=== PATIENT | female | born 1935 | race Caucasian/White ===

== ENCOUNTER 2016-10-31 10:29 | Inpatient (IN) | payer BC ==
--- NOTE | 2016-10-31 10:47 | PDOC ---
History of Present Illness - General History Source: Patient, Old Records Exam Limitations: No Limitations <Ruth Persaud - Last Filed: 10/31/16 13:34> - General History Source: Patient, Family, Old Records Exam Limitations: No Limitations - History of Present Illness Initial Comments: 10/31/16 11:34 The patient is a 81 year old female, accompanied by family, with a significant past medical history of DM, hypertension, hyperlipidemia, CAD s/p CABG, CKD, GERD, large LUQ hernia, who presents to the emergency department today with of altered mental status since this morning. As per daughter, the patient woke up at 7:30 this morning very disoriented. As per daughter the patient was having hallucinations and mood swings with associated nausea, dizziness, and weakness. The patient did not report any alleviating or exacerbating symptoms. PCP: Dr. Santos Haynes [phone] PAST MEDICAL HISTORY: DM, hypertension, hyperlipidemia, CAD, CKD, GERD, diverticulitis, anxiety PAST SURGICAL HISTORY: CABG, Hemicolectomy FAMILY HISTORY: No pertinent history reported SOCIAL HISTORY: Denied history of smoking, EtOH use, and/or recreational drug use. ALLERGIES: NKDA MEDICATIONS: Reviewed <Silverio Pindea - Last Filed: 10/31/16 13:42> - General Chief Complaint: Altered Mental Status Stated Complaint: ALTERED MENTAL STATE Time Seen by Provider: 10/31/16 10:47 Past History - Past Medical History Anemia: No Asthma: No Cancer: No Cardiac Disorders: Yes (CAD) CVA: No COPD: No CHF: No Dementia: No Diabetes: Yes GI Disorders: Yes (GERD-DIVERTICULITIS) Disorders: No HTN: Yes Hypercholesterolemia: Yes Liver Disease: No Psychiatric Problems: Yes (ANXEITY) Seizures: No Thyroid Disease: No Other medical history: ABD HERNIA - Surgical History Abdominal Surgery: Yes (EXPLORATORY LAP - HEMICOLECTOMY-) Appendectomy: No Cardiac Surgery: Yes (CABG) Cholecystectomy: No Lung Surgery: No Neurologic Surgery: No Orthopedic Surgery: No - Immunization History Immunization Up to Date: Yes - Psycho/Social/Smoking Cessation Hx Anxiety: No Suicidal Ideation: No Smoking History: Never smoked Have you smoked in the past 12 months: No Information on smoking cessation initiated: No Hx Alcohol Use: No Drug/Substance Use Hx: No Substance Use Type: None <Ruth Persaud - Last Filed: 10/31/16 13:34> <Silverio Pineda - Last Filed: 10/31/16 13:42> - Past Medical History Allergies/Adverse Reactions: Allergies Allergy/AdvReac Type Severity Reaction Status Date / Time No Known Allergies Allergy Verified 10/31/16 10:35 Home Medications: Ambulatory Orders Alprazolam [Xanax] 0.25 mg PO BID 06/13/13 Nifedipine [Nifedical Xl] 60 mg PO DAILY 06/13/13 Sitagliptin Phosphate [Januvia] 100 mg PO DAILY 06/13/13 Valsartan [Diovan] 320 mg PO DAILY 06/13/13 Metformin HCl [Glucophage -] 500 mg PO BID@0700,1630 #60 tablet 11/09/15 Metoprolol Succinate [Toprol XL -] 100 mg PO HS #30 tab.sr.24h 11/09/15 Atorvastatin Ca [Lipitor] 10 mg PO HS 10/31/16 Escitalopram Oxalate [Lexapro -] 5 mg PO DAILY 10/31/16 Glimepiride [Amaryl] 1 mg PO DAILY 10/31/16 Meclizine HCl 25 mg PO PRN 10/31/16 Review of Systems - Review of Systems Able to Perform ROS?: Yes Comments:: 10/31/16 11:34 CONSTITUTIONAL: Present: Weakness Absent: fever, chills, diaphoresis, generalized weakness, malaise, loss of appetite HEENT: Absent: rhinorrhea, nasal congestion, throat pain, throat swelling, difficulty swallowing, mouth swelling, ear pain, eye pain, visual Changes CARDIOVASCULAR: Absent: chest pain, syncope, palpitations, irregular heart rate, lightheadedness , peripheral edema RESPIRATORY: Absent: cough, shortness of breath, dyspnea with exertion, orthopnea, wheezing, stridor, hemoptysis GASTROINTESTINAL: Absent: abdominal pain, abdominal distension, vomiting, diarrhea, constipation, melena, hematochezia GENITOURINARY: Absent: dysuria, frequency, urgency, hesitancy, hematuria, flank pain, genital pain MUSCULOSKELETAL: Absent: myalgia, arthralgia, joint swelling SKIN: Absent: rash, itching, pallor HEMATOLOGIC/IMMUNOLOGIC: Absent: easy bleeding, easy bruising, lymphadenopathy, frequent infections ENDOCRINE: Absent: unexplained weight gain, unexplained weight loss, heat intolerance, cold intolerance NEUROLOGIC: Present: Altered mental status, hallucinations, nausea, dizziness Absent: headache, focal weakness or paresthesias, unsteady gait, seizure, bladder or bowel incontinence PSYCHIATRIC: Absent: anxiety, depression, suicidal or homicidal ideation, hallucinations. <Silverio Pineda - Last Filed: 10/31/16 13:42> *Physical Exam - Vital Signs Last Vital Signs Temp Pulse Resp BP Pulse Ox 98.0 F 74 18 114/60 100 10/31/16 10:36 10/31/16 10:36 10/31/16 10:36 10/31/16 10:36 10/31/16 10:36 <Ruth Persaud - Last Filed: 10/31/16 13:34> - Vital Signs Last Vital Signs Temp Pulse Resp BP Pulse Ox 98.0 F 74 18 114/60 100 10/31/16 10:36 10/31/16 10:36 10/31/16 10:36 10/31/16 10:36 10/31/16 10:36 - Physical Exam Comments: 10/31/16 11:34 GENERAL: Well developed, well nourished. Awake and alert. In no acute distress. HEENT: Normocephalic, atraumatic. PERRLA, EOMI. No conjunctival pallor. Sclera are non- icteric. Moist mucous membranes. Oropharynx is clear. NECK: Supple. Full ROM. No JVD. Carotid pulses 2+ and symmetric, without bruits. No thyromegaly. No lymphadenopathy. CARDIOVASCULAR: Regular rate and rhythm. No murmurs, rubs, or gallops. Distal pulses are 2+ and symmetric. PULMONARY: No evidence of respiratory distress. Lungs clear to auscultation bilaterally. No wheezing, rales or rhonchi. ABDOMINAL: (+) Soft. Non-tender. Non-distended. No rebound or guarding. No organomegaly. Normoactive bowel sounds. Large incisional hernia in left upper quadrant. MUSCULOSKELETAL Normal range of motion at all joints. No bony deformities or tenderness. No CVA tenderness. EXTREMITIES: No cyanosis. No clubbing. No edema. No calf tenderness. SKIN: Warm and dry. Normal capillary refill. No rashes. No jaundice. NEUROLOGICAL: Alert, awake, appropriate. Cranial nerves 2-12 intact. No deficits to light touch and temperature in face, upper extremities and lower extremities. No motor deficits in the in face, upper extremities and lower extremities. Normoreflexic in the upper and lower extremities. Normal speech. Toes are downgoing bilaterally. PSYCHIATRIC: Cooperative. Good eye contact. Appropriate mood and affect. <Silverio Pineda - Last Filed: 10/31/16 13:42> Heart Score/ECG Review - ECG Impressions Comment:: 10/31/16 11:10 EXAMT: ECG. IMPRESSION: Normal sinus rhythm. Minimal voltage criteria for LVH, may be normal variant. Borderline ECG. <Silverio Pineda - Last Filed: 10/31/16 13:42> ED Treatment Course - LABORATORY CBC & Chemistry Diagram: 10/31/16 11:31 10/31/16 11:31 <Ruth Persaud - Last Filed: 10/31/16 13:34> - LABORATORY CBC & Chemistry Diagram: 10/31/16 11:31 10/31/16 11:31 - RADIOLOGY Radiograph Interpretation: 10/31/16 12:56 EXAM#: TYPE/EXAM: RESULT: [id number] RAD/CHEST X-RAY PORTABLE* Clinical history: Altered mental status. COMPARISON: November 05, 2015. A lordotic AP seated chest film shows a borderline heart size and post CABG status. There is a linear scar in the right upper lobe as previously. No evidence of acute intrathoracic abnormality is seen. IMPRESSION: Status post CABG. No acute intrathoracic abnormality seen. Reported By: Sammy Motta MD 10/31/16 1249 EXAM#: TYPE/EXAM: RESULT: [id number] CT/HEAD CT WITHOUT CONTRAST Clinical history : Altered mental status. COMPARISON: 11/07/2015. Contiguous transaxial images are obtained from the skull base to the vertex without the intravenous use of iodinated contrast material. Sagittal and coronal reconstructions were performed. There are no areas of diminished or increased attenuation seen. There is no ventricular compression or extracerebral fluid collection seen. There is no evidence of a shift of the midline structures. Generalized involutional and periventricular white matter changes are noted. IMPRESSION: Normal noncontrast CT of the brain except for involutional and periventricular white matter changes. Symptoms persist or worsen, obtain MRI. Reported By: Sammy Motta MD 10/31/16 1212 <Silverio Pineda - Last Filed: 10/31/16 13:42> Medical Decision Making - Medical Decision Making 10/31/16 11:30 81-year-old female with history of hypertension, hyperlipidemia, diabetes who presents the emergency department with family who state that she had altered mental status/confusion this morning. Differential diagnosis includes but is not limited to: Infection (pneumonia versus UTI), electrolyte abnormality, dementia, anemia, toxic/metabolic derangement, delirium, atypical presentation of ACS. Plan: 1. Labs 2. Urine analysis 3. CT head 4. Chest x-ray 5. EKG 6. Observe and reevaluate 10/31/16 13:23 Addendum: Labs were reviewed and are noted in the EMR. The WBC is elevated but there is no apparent source of infection. The sodium is 126. CT head is negative as is the CXR. The plan is to admit for monitoring of sodium. <Ruth Persaud - Last Filed: 10/31/16 13:34> - Medical Decision Making 10/31/16 13:24 Dr. Haynes called at [phone]. Case discussed. Agreed to admit. <Silverio Pineda - Last Filed: 10/31/16 13:42> *DC/Admit/Observation/Transfer - Discharge Dispostion Admit: Yes - Attestations Physician Attestion: 10/31/16 11:31 I, Dr. Ruth Persaud, attest that the scribes documentation that appears above has been prepared under my direction and personally reviewed by me in its entirety. I confirmed that the note above accurately reflects all work, treatment, procedures, and medical decision-making performed by me. <Ruth Persaud - Last Filed: 10/31/16 13:34> - Attestations Scribe Attestion: 10/31/16 11:35 Documentation prepared by Silverio Pineda, acting as spanish medical interpreter for Ruth Persaud MD. <Silverio Pineda - Last Filed: 10/31/16 13:42> Diagnosis at time of Disposition: Altered mental status, Hyponatremia - Discharge Dispostion Condition at time of disposition: Stable - Referrals Referrals: Santos Haynes MD [Primary Care Provider] -
[2016-10-31 11:40] LABS: EOSINOPHIL 0.3 % (0-4.5); MCHC 33.7 g/dl (32.0-36.0); MEAN CELL VOLUME 92.1 fl (80-96); MEAN PLT VOLUME 7.7 fl (7.5-11.1); NEUTROPHILS 77.4 % (42.8-82.8); PLATELET COUNT 244 K/MM3 (134-434); RDW 14.1 % (11.6-15.6); WHITE BLOOD COUNT 13.2 K/mm3 (4.0-10.0)
[2016-10-31 12:03] LABS: TROPONIN I < 0.02 ng/ml (0.00-0.05)
[2016-10-31 12:24] LABS: URINE APPEARANCE CLEAR; URINE BILIRUBIN NEGATIVE (NEGATIVE); URINE BLOOD NEGATIVE (NEGATIVE); URINE COLOR STRAW; URINE GLUCOSE (UA) 3+ (NEGATIVE); URINE KETONE NEGATIVE (NEGATIVE); URINE LEUK ESTERASE NEGATIVE (NEGATIVE); URINE NITRITE NEGATIVE (NEGATIVE); URINE UROBILINOGEN NEGATIVE E.U./dl (0.2-1.0)
[2016-10-31 12:29] LABS: URINE PROTEIN 2+ (NEGATIVE)
[2016-10-31 12:29] LABS: ALBUMIN 3.4 g/dl (3.4-5.0); ALK PHOS 92 U/L (45-117); ANION GAP 10 (8-16); BILIRUBIN,TOTAL 0.4 mg/dL (0.2-1.0); CALCIUM 9.1 mg/dL (8.5-10.1); CO2 27 mmol/L (21-32); CREATININE 0.8 mg/dL (0.55-1.02); GLUCOSE,RANDOM 230 mg/dL (74-106); MAGNESIUM 1.5 mg/dL (1.8-2.4); PHOSPHOROUS 2.7 mg/dL (2.5-4.9); SGOT/AST 21 U/L (15-37); SGPT/ALT 27 U/L (12-78); TOT PROT 7.5 g/dl (6.4-8.2)
[2016-10-31 12:30] LABS: URINE RBC 1 /hpf (0-3); URINE WBC 1 /hpf (3-5)
[2016-10-31] MEDS ORDERED: SODIUM CHLORIDE 1,000 ML IV STA (12:39)
--- NOTE | 2016-10-31 13:53 | HP ---
CHIEF COMPLAINT: AMS PCP: Dr. Barcenas HISTORY OF PRESENT ILLNESS: The patient is a 81 year old female, accompanied by family, with a significant past medical history of DM, hypertension, hyperlipidemia, CAD s/p CABG, CKD, GERD, large LUQ hernia, who presents to the emergency department today with of altered mental status since this morning. As per daughter, the patient woke up at 7:30 this morning very disoriented. As per daughter the patient was having hallucinations and mood swings with associated nausea, dizziness, and weakness. The patient did not report any alleviating or exacerbating symptoms. Dr. Persaud, ED, explained that she spoke with Dr. Chaney who had blood work on her a week ago and it was normal range. These ER labs are new. She has also been started on Lexapro one week prior. PCP: Dr. Santos Hyanes [phone] PAST MEDICAL HISTORY: DM, hypertension, hyperlipidemia, CAD, CKD, GERD, diverticulitis, anxiety PAST SURGICAL HISTORY: CABG, Hemicolectomy FAMILY HISTORY: No pertinent history reported SOCIAL HISTORY: Denied history of smoking, EtOH use, and/or recreational drug use. ALLERGIES: NKDA MEDICATIONS: Reviewed Family History: Allergies No Known Allergies Allergy (Verified 10/31/16 10:35) HOME MEDICATIONS: Home Medications Medication Instructions Recorded Alprazolam [Xanax] 0.25 mg PO BID 06/13/13 Nifedipine [Nifedical Xl] 60 mg PO DAILY 06/13/13 Sitagliptin Phosphate [Januvia] 100 mg PO DAILY 06/13/13 Valsartan [Diovan] 320 mg PO DAILY 06/13/13 Metformin HCl [Glucophage -] 500 mg PO BID@0700,1630 #60 tablet 11/09/15 Metoprolol Succinate [Toprol XL -] 100 mg PO HS #30 tab.sr.24h 11/09/15 Atorvastatin Ca [Lipitor] 10 mg PO HS 10/31/16 Escitalopram Oxalate [Lexapro -] 5 mg PO DAILY 10/31/16 Glimepiride [Amaryl] 1 mg PO DAILY 10/31/16 Meclizine HCl 25 mg PO PRN 10/31/16 REVIEW OF SYSTEMS CONSTITUTIONAL: Absent: fever, chills, diaphoresis, generalized weakness, malaise, loss of appetite, weight change HEENT: Absent: rhinorrhea, nasal congestion, throat pain, throat swelling, difficulty swallowing, mouth swelling, ear pain, eye pain, visual changes CARDIOVASCULAR: Absent: chest pain, syncope, palpitations, irregular heart rate, lightheadedness , peripheral edema RESPIRATORY: Absent: cough, shortness of breath, dyspnea with exertion, orthopnea, wheezing, stridor, hemoptysis GASTROINTESTINAL: Absent: abdominal pain, abdominal distension, nausea, vomiting, diarrhea, constipation, melena, hematochezia GENITOURINARY: Absent: dysuria, frequency, urgency, hesitancy, hematuria, flank pain, genital pain MUSCULOSKELETAL: Absent: myalgia, arthralgia, joint swelling, back pain, neck pain SKIN: Absent: rash, itching, pallor HEMATOLOGIC/IMMUNOLOGIC: Absent: easy bleeding, easy bruising, lymphadenopathy, frequent infections ENDOCRINE: Absent: unexplained weight gain, unexplained weight loss, heat intolerance, cold intolerance NEUROLOGIC: Absent: headache, focal weakness or paresthesias, dizziness, unsteady gait, seizure, (+)mental status changes, bladder or bowel incontinence PSYCHIATRIC: Absent: anxiety, depression, suicidal or homicidal ideation, hallucinations. PHYSICAL EXAMINATION Vital Signs - 24 hr 10/31/16 10:36 Temperature 98.0 F Pulse Rate 74 Respiratory 18 Rate Blood Pressure 114/60 O2 Sat by Pulse 100 Oximetry (%) GENERAL: Awake, alert, and fully oriented, in no acute distress. HEAD: Normal with no signs of trauma. EYES: Pupils equal, round and reactive to light, extraocular movements intact, sclera anicteric, conjunctiva clear. No lid lag. EARS, NOSE, THROAT: Ears normal, nares patent, oropharynx clear without exudates. Moist mucous membranes. NECK: Normal range of motion, supple without lymphadenopathy, JVD, or masses. LUNGS: Breath sounds equal, clear to auscultation bilaterally. No wheezes, and no crackles. No accessory muscle use. HEART: Regular rate and rhythm, normal S1 and S2 without murmur, rub or gallop. ABDOMEN: Soft, nontender, not distended, normoactive bowel sounds, no guarding, no rebound, no masses. No hepatomegaly or splenomegaly. MUSCULOSKELETAL: Normal range of motion at all joints. No bony deformities or tenderness. No CVA tenderness. UPPER EXTREMITIES: 2+ pulses, warm, well-perfused. No cyanosis. No clubbing. No peripheral edema. LOWER EXTREMITIES: 2+ pulses, warm, well-perfused. No calf tenderness. No peripheral edema. NEUROLOGICAL: Cranial nerves II-XII intact. Normal speech. Normal gait. PSYCHIATRIC: Cooperative. Good eye contact. Appropriate mood and affect. SKIN: Warm, dry, normal turgor, no rashes or lesions noted, normal capillary refill. Laboratory Results - last 24 hr 10/31/16 10/31/16 10/31/16 11:13 11:29 11:31 WBC 13.2 H RBC 4.52 Hgb 14.0 Hct 41.6 MCV 92.1 MCHC 33.7 RDW 14.1 Plt Count 244 MPV 7.7 Neutrophils % 77.4 Lymphocytes % 15.3 D Monocytes % 6.0 Eosinophils % 0.3 Basophils % 1.0 Sodium Potassium Chloride Carbon Dioxide Anion Gap BUN Creatinine Creat Clearance w eGFR POC Glucometer [phone] Random Glucose Calcium Phosphorus Magnesium Total Bilirubin AST ALT Alkaline Phosphatase Creatine Kinase Troponin I Total Protein Albumin Lipase Urine Color Straw Urine Appearance Clear Urine pH 7.0 D Urine Protein 2+ H Urine Glucose (UA) 3+ H Urine Ketones Negative Urine Blood Negative Urine Nitrite Negative Urine Bilirubin Negative Urine Urobilinogen Negative Ur Leukocyte Esterase Negative Urine RBC 1 Urine WBC 1 Ur Epithelial Cells Rare 10/31/16 11:31 WBC RBC Hgb Hct MCV MCHC RDW Plt Count MPV Neutrophils % Lymphocytes % Monocytes % Eosinophils % Basophils % Sodium 126 L Potassium 4.1 Chloride 89 L D Carbon Dioxide 27 Anion Gap 10 BUN 16 Creatinine 0.8 Creat Clearance w eGFR > 60 POC Glucometer Random Glucose 230 H D Calcium 9.1 Phosphorus 2.7 D Magnesium 1.5 L Total Bilirubin 0.4 D AST 21 ALT 27 Alkaline Phosphatase 92 Creatine Kinase 86 Troponin I < 0.02 Total Protein 7.5 Albumin 3.4 Lipase 116 Urine Color Urine Appearance Urine pH Urine Protein Urine Glucose (UA) Urine Ketones Urine Blood Urine Nitrite Urine Bilirubin Urine Urobilinogen Ur Leukocyte Esterase Urine RBC Urine WBC Ur Epithelial Cells ASSESSMENT/PLAN: This 81 yr old female who is now admitted for hyponatremia and encephalopathy possible due to SSRI being admitted inpat m/s 1. hyponatremia -urine osmo/and lytes 2. leukocytosis -trend WBC -monitor fever -follow up culture 3. DM -monitor finger sticks -sliding scale 4. encephalopathy -monitor mental status -repeat head CT as needed. Problem List - Problem (1) Altered mental status Code(s): R41.82 - ALTERED MENTAL STATUS, UNSPECIFIED Qualifiers: Altered mental status type: disorientation Qualified Code(s): R41.0 - Disorientation, unspecified (2) Hyponatremia Code(s): E87.1 - HYPO-OSMOLALITY AND HYPONATREMIA (3) Hypomagnesemia Code(s): E83.42 - HYPOMAGNESEMIA Visit type - Emergency Visit Emergency Visit: Yes Care time: The patient presented to the Emergency Department on the above date and was hospitalized for further evaluation of their emergent condition. - New Patient This patient is new to me today: Yes Date on this admission: 10/31/16 - Critical Care Critical Care patient: No
[2016-10-31] MEDS ORDERED: MAGNESIUM SULF 50% (8.12 MEQ/2 ML-1 GM VIAL) IVPB ONE (14:11)
[2016-10-31] MEDS ORDERED: MAGNESIUM SULF 50% (8.12 MEQ/2 ML-1 GM VIAL) ONE (14:15)
--- NOTE | 2016-10-31 14:38 | EKG ---
Test Reason : Blood Pressure : / mmHG Vent. Rate : 066 BPM Atrial Rate : 066 BPM P-R Int : 164 ms QRS Dur : 088 ms QT Int : 398 ms P-R-T Axes : 042 -16 034 degrees QTc Int : 417 ms NORMAL SINUS RHYTHM MINIMAL VOLTAGE CRITERIA FOR LVH, MAY BE NORMAL VARIANT BORDERLINE ECG WHEN COMPARED WITH ECG OF 05-NOV-2015 17:43, VENT. RATE HAS DECREASED BY 37 BPM Confirmed by LORRIE SANON, MARY ([id number]) on 10/31/2016 2:38:15 PM Referred By: Confirmed By:MARY ANDREW MD
--- NOTE | 2016-10-31 16:03 | CON.CARD ---
Consult Consult Specialty:: cardio Referred by:: maryanne Reason for Consultation:: cad - History of Present Illness Chief Complaint: altered MS History of Present Illness: 81 yo female came to ER with MS changes. very disoriented since awoke this am, per family. as per daughter the patient was having hallucinations and mood swings with associated nausea, dizziness, and weakness. dtr at bedside in ER, states she is already improving pt and dtr deny any recent cp, sob, palpitation sx's no syncope PMH: CAD HTN HPL DM - Past Medical History Cardio/Vascular: Yes: CAD, HTN, Hyperlipdemia Gastrointestinal: Yes: Diverticulosis, GERD, GI Bleed Hepatobiliary: Yes: Other (fatty liver disease) Renal/: Yes: Hematuria (benign essential) Psych: Yes: Anxiety Musculoskeletal: Yes: Chronic low back pain (/spinal stenosis), Osteoarthritis Endocrine: Yes: Diabetes Mellitus - Past Surgical History Past Surgical History: Yes: CABG, Cataract Removal (bilateral), Colectomy ( hemicolectomy for GI bleed) - Alcohol/Substance Use Hx Alcohol Use: No History of Substance Use: reports: None - Smoking History Smoking history: Never smoked Have you smoked in the past 12 months: No - Social History ADL: Independent Occupation: retired dressmaker History of Recent Travel: No Home Medications - Allergies Allergies/Adverse Reactions: Allergies Allergy/AdvReac Type Severity Reaction Status Date / Time No Known Allergies Allergy Verified 10/31/16 10:35 - Home Medications Home Medications: Ambulatory Orders Alprazolam [Xanax] 0.25 mg PO BID 06/13/13 Nifedipine [Nifedical Xl] 60 mg PO DAILY 06/13/13 Sitagliptin Phosphate [Januvia] 100 mg PO DAILY 06/13/13 Valsartan [Diovan] 320 mg PO DAILY 06/13/13 Metformin HCl [Glucophage -] 500 mg PO BID@0700,1630 #60 tablet 11/09/15 Metoprolol Succinate [Toprol XL -] 100 mg PO HS #30 tab.sr.24h 11/09/15 Atorvastatin Ca [Lipitor] 10 mg PO HS 10/31/16 Escitalopram Oxalate [Lexapro -] 5 mg PO DAILY 10/31/16 Glimepiride [Amaryl] 1 mg PO DAILY 10/31/16 Meclizine HCl 25 mg PO PRN 10/31/16 Family Disease History - Family Disease History Family Disease History: Other: Father (old age), Mother (cirrhosis), Brother ( gastric cancer) Review of Systems - Review of Systems Constitutional: reports: Lethargy. denies: Chills, Fever Eyes: denies: Eye Pain HENT: denies: Nasal Congestion Neck: denies: Stiffness Cardiovascular: denies: Palpitations Respiratory: denies: Orthopnea, PND Gastrointestinal: denies: Diarrhea, Rectal Bleeding Genitourinary: denies: Burning, Hematuria Musculoskeletal: denies: Muscle Pain Integumentary: denies: Rash Neurological: reports: Confusion. denies: Numbness, Seizure, Syncope Endocrine: denies: Excessive Sweating Hematology/Lymphatic: denies: Excessive Bleeding Vital Signs: Vital Signs Temperature 98.0 F 10/31/16 10:36 Pulse Rate 74 10/31/16 10:36 Respiratory Rate 18 10/31/16 10:36 Blood Pressure 114/60 10/31/16 10:36 O2 Sat by Pulse Oximetry (%) 100 10/31/16 10:36 Constitutional: Yes: No Distress, Obese Eyes: No: Sclera Icterus HENT: No: Nasal Congestion Neck: No: Decreased ROM Respiratory: Yes: CTA Bilaterally. No: Accessory Muscle Use, Rales, Wheezes Gastrointestinal: Yes: Normal Bowel Sounds. No: Distention, Hepatomegaly, Palpable Mass, Tenderness Cardiovascular: Yes: Regular Rate and Rhythm JVD: No Carotid Bruit: No PMI: Non-Displaced Heart Sounds: Yes: S1, S2. No: Gallop Murmur: No: Systolic Murmur, Diastolic Murmur Musculoskeletal: Yes: Other (No kyphosis) Extremities: No: Cold, Cyanosis Edema: No Peripheral Pulses: 2+ Left Carotid, 2+ Right Carotid, 2+ Left Doralis Pedis, 2+ Right Dorsalis Pedis Integumentary: No: Jaundice Neurological: Yes: Alert, Oriented (x3). No: Seizure Psychiatric: No: Agitated - Other Data Labs, Other Data: Laboratory Tests 10/31/16 10/31/16 11:31 11:31 WBC 13.2 H Hgb 14.0 Plt Count 244 Sodium 126 L Potassium 4.1 Carbon Dioxide 27 BUN 16 Creatinine 0.8 AST 21 ALT 27 Creatine Kinase 86 Troponin I < 0.02 Imaging - Results Chest X-ray: Report Reviewed (clear lungs/pleura) Cat Scan: Report Reviewed (brain: no acute pathology) Assessment/Plan Dobut Stress Echo 2014: 90% MPHR. no STs. no ischemia (normal augmentation all territories) MIBI 06/27: (betty); no ST; variable breast; small/hyper EF; no TID MIBI 12/23 (aleksandar): no STs, ? small apical isch--felt more likely variable breast ; small LV, hyper EF; no TID Echo 11/25: nl LV/EF; nl RV; valves WNL; RVSP 30-40 ECG: NSR, no ischemic findings Hyponatremia: -Na 126 (was 136 in office 10/23/16) -? med effect/SIADH (SSRI started recently per ER report) -no diuretics listed on office EHR med list -per pmd confusion, altered MS: -suspect due to acute drop in SNa -w/u per dr goodman -CT head no stroke -no role for telemetry monitoring at present Coronary artery disease -PRIOR CABG ' W/ANGINAL SX'S SEVERE VIVAR. -NO ISCHEMIA SUSPECTED 2013 THOUGH TECHNICAL LIMITATIONS RELATED TO SMALL LV CAVITY WITH RELATIVELY LARGE BREAST SIZE--VARIABLE BREAST ATTENUATION SUSPECTED > LAD ISCHEMIA AT THAT TIME -NO ISCHEMIA IN THIS (OR OTHER) TERRITORY ON STRESS ECHO 2014 (ATYPICAL SX'S THEN FELT MORE LIKELY GERD/ESOPHAGEAL SPASM--REC'D PPI TRIAL) -NO ANGINAL SX'S SUSPECTED PRESENTLY, NO EKG CHANGES, CARDIAC ENZYMES WNL -HOME MED REGIMEN: ASA, BB, STATIN, ARB--CONT SAME Hypertension -WELL CONTROLLED; -CONT HOME MEDS Diabetes mellitus -PER PMD
--- NOTE | 2016-10-31 18:29 | CONSULT ---
Consult Consult Specialty:: Nephrology Reason for Consultation:: hyponatremia - History of Present Illness Chief Complaint: altered mental status History of Present Illness: Pt is an 81 year old female with pmhx of CAD, CKD, GERD, CABG, DM, HTN and JACK in the past who presents to the ER with altered mental status. She is accompanied by her daughter who helped with the history. She was found to be hyponatremic and I was called to evaluate her. PT was having mood swing and hallucinations at home. She was started on Lexapro about a week ago. She has been on it for about 5 days now. She denies dysuria or hematuria. She denies excess water intake. - History Source History Provided By: Patient, Family Member - Past Medical History Cardio/Vascular: Yes: CAD, HTN, Hyperlipdemia Gastrointestinal: Yes: Diverticulosis, GERD, GI Bleed Hepatobiliary: Yes: Other (fatty liver disease) Renal/: Yes: Hematuria (benign essential), Other (JACK) Psych: Yes: Anxiety Musculoskeletal: Yes: Chronic low back pain (/spinal stenosis), Osteoarthritis Endocrine: Yes: Diabetes Mellitus - Past Surgical History Past Surgical History: Yes: CABG, Cataract Removal (bilateral), Colectomy ( hemicolectomy for GI bleed) - Alcohol/Substance Use Hx Alcohol Use: No History of Substance Use: reports: None - Smoking History Smoking history: Never smoked Have you smoked in the past 12 months: No - Social History ADL: Independent Occupation: retired dressmaker History of Recent Travel: No Home Medications - Allergies Allergies/Adverse Reactions: Allergies Allergy/AdvReac Type Severity Reaction Status Date / Time No Known Allergies Allergy Verified 10/31/16 10:35 - Home Medications Home Medications: Ambulatory Orders Alprazolam [Xanax] 0.25 mg PO BID 06/13/13 Nifedipine [Nifedical Xl] 60 mg PO DAILY 06/13/13 Sitagliptin Phosphate [Januvia] 100 mg PO DAILY 06/13/13 Valsartan [Diovan] 320 mg PO DAILY 06/13/13 Metformin HCl [Glucophage -] 500 mg PO BID@0700,1630 #60 tablet 11/09/15 Metoprolol Succinate [Toprol XL -] 100 mg PO HS #30 tab.sr.24h 11/09/15 Atorvastatin Ca [Lipitor] 10 mg PO HS 10/31/16 Escitalopram Oxalate [Lexapro -] 5 mg PO DAILY 10/31/16 Glimepiride [Amaryl] 1 mg PO DAILY 10/31/16 Meclizine HCl 25 mg PO PRN 10/31/16 Family Disease History - Family Disease History Family Disease History: Other: Father (old age), Mother (cirrhosis), Brother ( gastric cancer) Review of Systems - Review of Systems Constitutional: reports: Malaise Eyes: reports: No Symptoms HENT: reports: No Symptoms Neck: reports: No Symptoms Cardiovascular: reports: No Symptoms Respiratory: reports: No Symptoms Gastrointestinal: reports: No Symptoms Genitourinary: reports: No Symptoms Musculoskeletal: reports: No Symptoms Integumentary: reports: No Symptoms Neurological: reports: Confusion Endocrine: reports: No Symptoms Psychiatric: reports: Hallucinations Physical Exam Vital Signs: Vital Signs Temperature 98.2 F 10/31/16 17:10 Pulse Rate 69 10/31/16 17:10 Respiratory Rate 20 10/31/16 17:10 Blood Pressure 148/69 10/31/16 17:10 O2 Sat by Pulse Oximetry (%) 95 10/31/16 17:47 Constitutional: Yes: Calm Eyes: Yes: Conjunctiva Clear HENT: Yes: Atraumatic Neck: Yes: Supple Cardiovascular: Yes: S1, S2 Respiratory: Yes: CTA Bilaterally Gastrointestinal: Yes: Soft Renal/: Yes: WNL Musculoskeletal: Yes: WNL Edema: No Neurological: Yes: Oriented Psychiatric: Yes: Oriented Labs: Laboratory Tests 11/25/14 11/26/14 11/05/15 22:25 06:00 18:50 WBC Hgb Plt Count Sodium 139 141 137 Potassium Chloride Carbon Dioxide Anion Gap BUN Creatinine Creat Clearance w eGFR Random Glucose Magnesium 10/31/16 10/31/16 11:31 11:31 WBC 13.2 H Hgb 14.0 Plt Count 244 Sodium 126 L Potassium 4.1 Chloride 89 L D Carbon Dioxide 27 Anion Gap 10 BUN 16 Creatinine 0.8 Creat Clearance w eGFR > 60 Random Glucose 230 H D Magnesium 1.5 L Imaging - Results Chest X-ray: Report Reviewed Assessment/Plan Impression 1. hyponatremia 2. CAD s/p CABG 3. DM 4. HTN 5. hyperlipidemia 6. anxiety 7. GERD 8. hypomagnesemia Plan - recommend stopping lexapro, can choose alternative agent - restrict free water to 1 liter - check plasma and urine osm - check urine lytes - check tsh and cortisol level - discussed plan with pt and her daughter - admit to hospital for further treatment and workup - replace mag and repeat labs in am
[2016-10-31] MEDS ORDERED: SODIUM CHLORIDE 1 GM TABLET PO ONE (18:31)
[2016-10-31 20:09] VITALS: BMI 28.3
[2016-10-31] MEDS ORDERED: VALSARTAN 160 MG TABLET (UD) PO STA (22:07)
--- NOTE | 2016-10-31 22:46 | PN ---
Progress Note (short form) - Note Progress Note: PATIENT ADMITTED FROM ER BY ASSEMBLER FOR PULLER OVER HAND / SEEN BY MYSELF THIS PM . PRESENTED WITH CONFUSION AT HOME / DISORIENTED . FOUND TO BE HYPONA ++ . TREATED IN ER WITH IV SALINE . PATIENT NOW AWAKE ALERT ORIENTED X 3 . PATIENT HAS NOT TAKEN ANY OF HER MEDS TODAY . BP THIS EVENING ELEVATED. NA ++ LEVEL 1 WEEK AGO NORMAL . AT THAT TIME SHE WAS STARTED ON LEXAPRO FOR ANXIETY NOT FULLY CONTROLLED BY PRN XANAX. RENAL FEELS LEXAPRO MAY BE THE INDUCING FACTOR. PRESENTLY SHE IS AMBULATING IN ROOM / ORIENTED X 3 / NO DISTRESS / NO CP / NO SOB / NO PALPITATIONS. Selected Entries 10/31/16 20:07 Temperature 98.1 F Pulse Rate 70 Respiratory 20 Rate Blood Pressure 154/108 Weight 145 lb Laboratory Tests 10/31/16 10/31/16 10/31/16 11:31 11:31 22:16 WBC 13.2 H RBC 4.52 Hgb 14.0 Hct 41.6 Plt Count 244 Sodium 126 L Potassium 4.1 Chloride 89 L D Carbon Dioxide 27 Anion Gap 10 BUN 16 Creatinine 0.8 Creat Clearance w eGFR > 60 POC Glucometer 174 Magnesium 1.5 L P/E < > ALERT / ORIENTED / NO DISTRESS. HEENT <> NECK SUPPLE / CAROTIDS 2 + /NO BRUITS COR <> S 1 S 2 NO M / NO G CHEST <> CLEAR P & A ABD <> OBESE / MULTIPLE SURGICAL SCARS / INCISIONAL HERNIAS / LARGEST LEFT OF MIDLINE. EXT <> NO CALF TENDERNESS / NO EDEMA. IMP <> HYPONA++ POSSIBLY LEXAPRO INDUCED CONFUSION / DISORIENTATION FROM HYPONA ++ ASHD / CAD / S/P CABG TYPE 2 DM MELVA ON XANAX HTN HYPERCHOLESTEROLEMIA MGUS / CHRONIC LEUKOCYTOSIS FOLLOWED BY DR AMEZQUITA. HY OF RUPTURED DIVERTICULITIS/ SEPSIS / HEMICOLECTOMY / ABDOMINAL WALL WOUND INFECTION. PLAN <> NA TABS PER RENAL W/UP WITH CORTISOL / THYROID FUNCTION TESTING PER RENAL REPEAT LABS IN AM. CARDIOLOGY CONSULT / FOLLOWUP. GIVE HER REGULAR DIOVAN DOSE TONIGHT WITH ELEVATED BP . BGM'S WITH COVERAGE. PSYCH CONSULT FOR ANXIETY. NEPHROLOGY FOLLOWUP.
[2016-10-31] MEDS: INSULIN SLIDING SCALE (NOVOLOG) 1 VIAL SQ SCH (22:57)
[2016-10-31] MEDS: ATORVASTATIN CA 10 MG TABLET (FP) PO SCH (22:57)
[2016-10-31] MEDS: ALPRAZolam 0.25 MG TABLET PO SCH (22:57)
[2016-11-01] MEDS: GLIMEPIRIDE 1 MG TABLET (FP) PO SCH (07:00)
[2016-11-01] MEDS: metFORMIN HCL 500 MG TABLET (FP) PO SCH ×2 (07:00→17:27)
[2016-11-01] MEDS: sitaGLIPtin PHOSPHATE 100 MG TABLET (FP) PO SCH (07:00)
[2016-11-01] MEDS: INSULIN SLIDING SCALE (NOVOLOG) 1 VIAL SQ SCH ×3 (07:02→17:27)
[2016-11-01 07:46] LABS: BASOPHIL 0.6 % (0-2.0); EOSINOPHIL 0.9 % (0-4.5); MCH 30.9 pg (25.7-33.7); MCHC 33.3 g/dl (32.0-36.0); MEAN CELL VOLUME 92.7 fl (80-96); MEAN PLT VOLUME 7.8 fl (7.5-11.1); NEUTROPHILS 69.5 % (42.8-82.8); PLATELET COUNT 263 K/MM3 (134-434); RDW 13.9 % (11.6-15.6); WHITE BLOOD COUNT 12.6 K/mm3 (4.0-10.0)
[2016-11-01 08:05] LABS: INR 1.02 (0.82-1.09); PROTHROMBIN TIME (PATIENT) 11.2 SEC (9.98-11.88)
[2016-11-01 08:07] LABS: ACTIVATED PTT 29.9 SECONDS (26.9-34.4)
[2016-11-01 08:20] LABS: ALBUMIN 3.5 g/dl (3.4-5.0); CALCIUM 9.4 mg/dL (8.5-10.1)
[2016-11-01 08:35] LABS: ALK PHOS 95 U/L (45-117); ANION GAP 10 (8-16); BILIRUBIN,TOTAL 0.7 mg/dL (0.2-1.0); CO2 26 mmol/L (21-32); CREATININE 0.7 mg/dL (0.55-1.02); GLUCOSE,RANDOM 198 mg/dL (74-106); MAGNESIUM 2.1 mg/dL (1.8-2.4); SGOT/AST 21 U/L (15-37); SGPT/ALT 28 U/L (12-78); THYROID STIMULATING HORMONE 2.11 uIU/ml (0.358-3.74); TOT PROT 7.7 g/dl (6.4-8.2)
[2016-11-01] MEDS: ASPIRIN COATED 81 MG TABLET.EC PO SCH (09:41)
[2016-11-01] MEDS: METOPROLOL SUCCINATE 100 MG TAB.SR.24H (FP) PO SCH (09:41)
[2016-11-01] MEDS: ALPRAZolam 0.25 MG TABLET PO SCH ×2 (09:41→21:43)
[2016-11-01] MEDS: NIFEdipine E.R 60 MG TABLET (UD) PO SCH (09:41)
[2016-11-01] MEDS ORDERED: VALSARTAN 160 MG TABLET (UD) PO SCH ×2 (10:00→22:00)
--- NOTE | 2016-11-01 10:09 | CON.NEURO ---
Consult - History of Present Illness History of Present Illness: 1 year old female brought to hospital for confusion for one day, no focal neurological symptoms ( aphasia, dysarthria, diplopia, weakness or numbness or seizure or headache ). Patient ct head was normal, and sodium is low and after giving iv fluid and sodium tablet , she has improved. at floor she has been walking around, denies headhace. Recently she was started on lexapro for anxiety. - Past Medical History Cardio/Vascular: Yes: CAD, HTN, Hyperlipdemia Gastrointestinal: Yes: Diverticulosis, GERD, GI Bleed Hepatobiliary: Yes: Other (fatty liver disease) Renal/: Yes: Hematuria (benign essential), Other (JACK) Psych: Yes: Anxiety Musculoskeletal: Yes: Chronic low back pain (/spinal stenosis), Osteoarthritis Endocrine: Yes: Diabetes Mellitus - Past Surgical History Past Surgical History: Yes: CABG, Cataract Removal (bilateral), Colectomy ( hemicolectomy for GI bleed) - Alcohol/Substance Use Hx Alcohol Use: No History of Substance Use: reports: None - Smoking History Smoking history: Never smoked Have you smoked in the past 12 months: No - Social History ADL: Independent Occupation: retired dressmaker History of Recent Travel: No Home Medications - Allergies Allergies/Adverse Reactions: Allergies Allergy/AdvReac Type Severity Reaction Status Date / Time No Known Allergies Allergy Verified 10/31/16 10:35 - Home Medications Home Medications: Ambulatory Orders Alprazolam [Xanax] 0.25 mg PO BID 06/13/13 Nifedipine [Nifedical Xl] 60 mg PO DAILY 06/13/13 Sitagliptin Phosphate [Januvia] 100 mg PO DAILY 06/13/13 Valsartan [Diovan] 320 mg PO DAILY 06/13/13 Metformin HCl [Glucophage -] 500 mg PO BID@0700,1630 #60 tablet 11/09/15 Metoprolol Succinate [Toprol XL -] 100 mg PO HS #30 tab.sr.24h 11/09/15 Atorvastatin Ca [Lipitor] 10 mg PO HS 10/31/16 Escitalopram Oxalate [Lexapro -] 5 mg PO DAILY 10/31/16 Glimepiride [Amaryl] 1 mg PO DAILY 10/31/16 Meclizine HCl 25 mg PO PRN 10/31/16 Family Disease History - Family Disease History Family Disease History: Other: Father (old age), Mother (cirrhosis), Brother ( gastric cancer) Physical Exam-Neuro Vital Signs: Vital Signs Temperature 98.0 F 11/01/16 09:00 Pulse Rate 71 11/01/16 09:00 Respiratory Rate 18 11/01/16 09:00 Blood Pressure 145/68 11/01/16 09:00 O2 Sat by Pulse Oximetry (%) 95 11/01/16 05:00 Labs: CBC, BMP 11/01/16 06:30 11/01/16 06:30 INR, PTT INR 1.02 (0.82-1.09) 11/01/16 06:30 NIH Stroke Scale - Total Score NIH Stroke Scale Score: 0 Imaging - Results Cat Scan: Report Reviewed Assessment/Plan confusion 81 year old female brought to hospital for confusion for one day, no focal neurological symptoms ( aphasia, dysarthria, diplopia, weakness or numbness or seizure or headache ). Patient ct head was normal, and sodium is low and after giving iv fluid and sodium tablet , she has improved. at floor she has been walking around, denies headhace. Recently she was started on lexapro for anxiety. Past Medical HIistory of DM, HTN HLP , CKD , CAD, AND CABG, AND Hemicolectomy No toxic habits. Home Medication Home Medications Medication Instructions Recorded Alprazolam [Xanax] 0.25 mg PO BID 06/13/13 Nifedipine [Nifedical Xl] 60 mg PO DAILY 06/13/13 Sitagliptin Phosphate [Januvia] 100 mg PO DAILY 06/13/13 Valsartan [Diovan] 320 mg PO DAILY 06/13/13 Metformin HCl [Glucophage -] 500 mg PO BID@0700,1630 #60 tablet 11/09/15 Metoprolol Succinate [Toprol XL -] 100 mg PO HS #30 tab.sr.24h 11/09/15 Atorvastatin Ca [Lipitor] 10 mg PO HS 10/31/16 Escitalopram Oxalate [Lexapro -] 5 mg PO DAILY 10/31/16 Glimepiride [Amaryl] 1 mg PO DAILY 10/31/16 Meclizine HCl 25 mg PO PRN 10/31/16 ROS reviewed in chart Neurological Examination alert and oriented x 2, could not tell what date is today,she is walking around no speech disturbances, answering phone and having normal conversation with family moving all extremity , normal strength Reflex are generalized diminished ct head is unremarkable Assessment-- confusion could be due to hyponatremia and also contributed by lexapro , at this time clinically unlikely to be stroke, meningitis or subclinical status Plan-- [facility] can be follow up for further evaluation as outpatient for dementia B12,folate tsh can be send no further recommendation from Neuro point of view Thanking you so much Sheldon Lanier MD
--- NOTE | 2016-11-01 13:35 | PN ---
Progress Note, Physician History of Present Illness: Pt seen and examined at bedside. She is more awake and alert today. - Current Medication List Current Medications: Active Medications Alprazolam (Xanax -) 0.25 mg PO BID [facility] Last Admin: 11/01/16 09:41 Dose: 0.25 mg Aspirin (Ecotrin -) 81 mg PO DAILY [facility] Last Admin: 11/01/16 09:41 Dose: 81 mg Atorvastatin Calcium (Lipitor -) 10 mg PO [facility] Last Admin: 10/31/16 22:57 Dose: 10 mg Glimepiride (Amaryl -) 1 mg PO DAILY@0700 [facility] Last Admin: 11/01/16 07:00 Dose: 1 mg Insulin Aspart (Novolog Vial Sliding Scale -) 1 vial SQ TIDAC [facility] PRN Reason: Protocol Last Admin: 11/01/16 11:49 Dose: Not Given Metformin HCl (Glucophage -) 500 mg PO BID@0700,1630 [facility] Last Admin: 11/01/16 07:00 Dose: 500 mg Metoprolol Succinate (Toprol Xl -) 100 mg PO DAILY [facility] Last Admin: 11/01/16 09:41 Dose: 100 mg Nifedipine (Procardia Xl -) 60 mg PO DAILY [facility] Last Admin: 11/01/16 09:41 Dose: 60 mg Sitagliptin Phosphate (Januvia -) 100 mg PO DAILY@0700 [facility] Last Admin: 11/01/16 07:00 Dose: 100 mg Valsartan (Diovan -) 320 mg PO [facility] - Objective Vital Signs: Vital Signs Temperature 98.0 F 11/01/16 09:00 Pulse Rate 71 11/01/16 09:00 Respiratory Rate 18 11/01/16 09:00 Blood Pressure 145/68 11/01/16 09:00 O2 Sat by Pulse Oximetry (%) 95 11/01/16 05:00 Constitutional: Yes: Calm Eyes: Yes: Conjunctiva Clear HENT: Yes: Atraumatic Neck: Yes: Supple Cardiovascular: Yes: S1, S2 Respiratory: Yes: CTA Bilaterally Gastrointestinal: Yes: Soft, Abdomen, Obese Genitourinary: Yes: WNL Musculoskeletal: Yes: WNL Edema: No Neurological: Yes: Oriented Psychiatric: Yes: Oriented Labs: CBC, BMP 11/01/16 06:30 11/01/16 06:30 INR, PTT INR 1.02 (0.82-1.09) 11/01/16 06:30 Problem List - Problems (1) Altered mental status Code(s): R41.82 - ALTERED MENTAL STATUS, UNSPECIFIED Qualifiers: Altered mental status type: disorientation Qualified Code(s): R41.0 - Disorientation, unspecified (2) Hyponatremia Code(s): E87.1 - HYPO-OSMOLALITY AND HYPONATREMIA Assessment/Plan Current Medications Generic Name Dose Route Start Last Admin Trade Name Freq PRN Reason Stop Dose Admin Alprazolam 0.25 mg 10/31/16 22:00 11/01/16 09:41 Xanax - PO 0.25 mg BID JULIÁN Administration Aspirin 81 mg 11/01/16 10:00 11/01/16 09:41 Ecotrin - PO 81 mg DAILY JULIÁN Administration Atorvastatin Calcium 10 mg 10/31/16 22:00 10/31/16 22:57 Lipitor - PO 10 mg HS JULIÁN Administration Glimepiride 1 mg 11/01/16 07:00 11/01/16 07:00 Amaryl - PO 1 mg DAILY@0700 JULIÁN Administration Insulin Aspart 1 vial 10/31/16 22:15 11/01/16 11:49 Novolog Vial Sliding Scale - SQ Not [facility] Protocol Metformin HCl 500 mg 11/01/16 07:00 11/01/16 07:00 Glucophage - PO 500 mg BID@0700,1630 JULIÁN Administration Metoprolol Succinate 100 mg 11/01/16 10:00 11/01/16 09:41 Toprol Xl - PO 100 mg DAILY JULIÁN Administration Nifedipine 60 mg 11/01/16 10:00 11/01/16 09:41 Procardia Xl - PO 60 mg DAILY JULI[facility]N Administration Sitagliptin Phosphate 100 mg 11/01/16 07:00 11/01/16 07:00 Januvia - PO 100 mg DAILY@0700 JUL[facility]N Administration Valsartan 320 mg 11/01/16 22:00 Diovan - PO HS [facility] Laboratory Tests 10/31/16 10/31/16 10/31/16 14:00 20:00 21:30 Sodium Serum Osmolality Pending TSH Cortisol AM Sample Urine Osmolality Pending Ur Random Sodium 64 11/01/16 11/01/16 06:30 06:30 Sodium 130 L Serum Osmolality TSH 2.11 Cortisol AM Sample Pending Urine Osmolality Ur Random Sodium Impression 1. hyponatremia 2. CAD s/p CABG 3. DM 4. HTN 5. hyperlipidemia 6. anxiety 7. GERD 8. hypomagnesemia Plan - hyponatremia workup is in progress - repeat labs in am - cont free water restriction - will give another salt tab - would recommend restarting lexapro, can see psych for alternate agent - neuro input appreciated
--- NOTE | 2016-11-01 14:43 | CON.PSY ---
Psychiatry Consult Chief Complaint: in get panic attacks anbd anxiety. I also have pins and needles all ove4r my body. Symptoms: reports: Anxiety, Panic Attacks - Previous Psychiatric Treatment Outpatient: None Inpatient: None - Previous Substance Abuse Treatment Outpatient: None Inpatient: None - Current Medications Current Medications: Active Medications Alprazolam (Xanax -) 0.25 mg PO BID [facility] Last Admin: 11/01/16 09:41 Dose: 0.25 mg Aspirin (Ecotrin -) 81 mg PO DAILY [facility] Last Admin: 11/01/16 09:41 Dose: 81 mg Atorvastatin Calcium (Lipitor -) 10 mg PO [facility] Last Admin: 10/31/16 22:57 Dose: 10 mg Glimepiride (Amaryl -) 1 mg PO DAILY@0700 [facility] Last Admin: 11/01/16 07:00 Dose: 1 mg Insulin Aspart (Novolog Vial Sliding Scale -) 1 vial SQ TIDAC [facility] PRN Reason: Protocol Last Admin: 11/01/16 11:49 Dose: Not Given Metformin HCl (Glucophage -) 500 mg PO BID@0700,1630 [facility] Last Admin: 11/01/16 07:00 Dose: 500 mg Metoprolol Succinate (Toprol Xl -) 100 mg PO DAILY [facility] Last Admin: 11/01/16 09:41 Dose: 100 mg Nifedipine (Procardia Xl -) 60 mg PO DAILY [facility] Last Admin: 11/01/16 09:41 Dose: 60 mg Sitagliptin Phosphate (Januvia -) 100 mg PO DAILY@0700 [facility] Last Admin: 11/01/16 07:00 Dose: 100 mg Sodium Chloride (Sodium Chloride Tablet -) 1 gm PO ONCE ONE Stop: 11/01/16 13:36 Valsartan (Diovan -) 320 mg PO [facility] - Allergies Allergies: Allergies Allergy/AdvReac Type Severity Reaction Status Date / Time No Known Allergies Allergy Verified 10/31/16 10:35 - Current Living Status Usual Living Arrangement: With Significant Other - Current Mental Status Evaluation Attitude: Cooperative - Affect Affect: Full Range Appropriateness: Appropriate to Content - Mood Mood: Anxious - Speech/Language Expressive: Coherent - Psychomotor Activity Psychomotor Activity: Hyperactive - Thought Process Thought Process: Intact - Thought Content Hallucinations: Absent Delusions: Absent - Self Perception Self Perception: No Impairment - Cognition Attention: Alert Memory, Immediate Recall: Intact Memory, Short Term: 2/3 Memory, Remote with Promptin/3 - Abstraction Proverb Interpretation: Intact Judgement: Intact - Insight Insight: Intact - Impulse Control Impulse Control: Good Control - Suicidal Ideation Suicidal Ideation: No - Homicidal Ideation Homicidal Ideation: No Assessment/Plan 1) Continue with XAnax. 2) Consider Neurontin for parasthesias
[2016-11-01] MEDS ORDERED: SODIUM CHLORIDE 1 GM TABLET PO ONE (15:00)
--- NOTE | 2016-11-01 16:07 | PN ---
Progress Note, Physician Chief Complaint: Ms Cheung says she is doing well. No cp, sob, n/v. Anxiety improved. - Current Medication List Current Medications: Active Medications Alprazolam (Xanax -) 0.25 mg PO BID [facility] Last Admin: 11/01/16 09:41 Dose: 0.25 mg Aspirin (Ecotrin -) 81 mg PO DAILY [facility] Last Admin: 11/01/16 09:41 Dose: 81 mg Atorvastatin Calcium (Lipitor -) 10 mg PO [facility] Last Admin: 10/31/16 22:57 Dose: 10 mg Glimepiride (Amaryl -) 1 mg PO DAILY@0700 [facility] Last Admin: 11/01/16 07:00 Dose: 1 mg Insulin Aspart (Novolog Vial Sliding Scale -) 1 vial SQ TIDAC [facility] PRN Reason: Protocol Last Admin: 11/01/16 11:49 Dose: Not Given Metformin HCl (Glucophage -) 500 mg PO BID@0700,1630 [facility] Last Admin: 11/01/16 07:00 Dose: 500 mg Metoprolol Succinate (Toprol Xl -) 100 mg PO DAILY [facility] Last Admin: 11/01/16 09:41 Dose: 100 mg Nifedipine (Procardia Xl -) 60 mg PO DAILY [facility] Last Admin: 11/01/16 09:41 Dose: 60 mg Sitagliptin Phosphate (Januvia -) 100 mg PO DAILY@0700 [facility] Last Admin: 11/01/16 07:00 Dose: 100 mg Valsartan (Diovan -) 320 mg PO [facility] - Objective Vital Signs: Vital Signs Temperature 98.1 F 11/01/16 14:02 Pulse Rate 71 11/01/16 14:02 Respiratory Rate 17 11/01/16 14:02 Blood Pressure 112/49 11/01/16 14:02 O2 Sat by Pulse Oximetry (%) 95 11/01/16 05:00 Constitutional: Yes: Well Nourished, No Distress, Calm Cardiovascular: Yes: Regular Rate and Rhythm. No: Gallop, Murmur, Rub Respiratory: Yes: Regular, CTA Bilaterally. No: Rales, Rhonchi, Wheezes Gastrointestinal: Yes: Normal Bowel Sounds, Soft. No: Distention, Tenderness Extremities: Yes: WNL Edema: No Labs: CBC, BMP 11/01/16 06:30 11/01/16 06:30 INR, PTT INR 1.02 (0.82-1.09) 11/01/16 06:30 Problem List - Problems (1) Altered mental status Assessment/Plan: -secondary to hyponatremia -resolved Code(s): R41.82 - ALTERED MENTAL STATUS, UNSPECIFIED Qualifiers: Altered mental status type: disorientation Qualified Code(s): R41.0 - Disorientation, unspecified (2) Hyponatremia Assessment/Plan: -? secondary to lexapro -improving -appreciate nephrology assistance -continue salt supplementation -recheck in am Code(s): E87.1 - HYPO-OSMOLALITY AND HYPONATREMIA (3) Anxiety Assessment/Plan: -appreciate psychiatry assistance -started on xanax Code(s): F41.9 - ANXIETY DISORDER, UNSPECIFIED (4) Hyperlipidemia Assessment/Plan: -continue lipitor Code(s): E78.5 - HYPERLIPIDEMIA, UNSPECIFIED (5) Hypertension Assessment/Plan: -continue nifedipine, toprol xl, and valsartan Code(s): I10 - ESSENTIAL (PRIMARY) HYPERTENSION (6) Uncontrolled type 2 diabetes mellitus Assessment/Plan: -continue metformin, amaryl, and januvia Code(s): E11.65 - TYPE 2 DIABETES MELLITUS WITH HYPERGLYCEMIA Assessment/Plan -possible discharge tomorrow
[2016-11-01] MEDS: ATORVASTATIN CA 10 MG TABLET (FP) PO SCH (21:43)
[2016-11-02] MEDS ORDERED: PT OWN MED DRAWER 7, Y5N ONE (06:28)
[2016-11-02] MEDS: GLIMEPIRIDE 1 MG TABLET (FP) PO SCH (07:05)
[2016-11-02] MEDS: sitaGLIPtin PHOSPHATE 100 MG TABLET (FP) PO SCH (07:05)
[2016-11-02] MEDS: metFORMIN HCL 500 MG TABLET (FP) PO SCH ×2 (07:05→16:35)
[2016-11-02] MEDS: INSULIN SLIDING SCALE (NOVOLOG) 1 VIAL SQ SCH ×3 (07:12→16:34)
[2016-11-02 07:37] VITALS: PULSE 66
[2016-11-02 08:32] LABS: BASOPHIL 0.5 % (0-2.0); EOSINOPHIL 1.3 % (0-4.5); MCH 31.3 pg (25.7-33.7); MCHC 33.9 g/dl (32.0-36.0); MEAN CELL VOLUME 92.3 fl (80-96); NEUTROPHILS 68.9 % (42.8-82.8); PLATELET COUNT 213 K/MM3 (134-434); RDW 14.3 % (11.6-15.6); WHITE BLOOD COUNT 10.2 K/mm3 (4.0-10.0)
[2016-11-02 08:53] LABS: ANION GAP 10 (8-16); CALCIUM 9.2 mg/dL (8.5-10.1); CO2 27 mmol/L (21-32); CREATININE 0.7 mg/dL (0.55-1.02); GLUCOSE,RANDOM 175 mg/dL (74-106)
[2016-11-02] MEDS: ASPIRIN COATED 81 MG TABLET.EC PO SCH (10:50)
[2016-11-02] MEDS: METOPROLOL SUCCINATE 100 MG TAB.SR.24H (FP) PO SCH (10:55)
[2016-11-02] MEDS: NIFEdipine E.R 60 MG TABLET (UD) PO SCH (10:55)
[2016-11-02] MEDS: ALPRAZolam 0.25 MG TABLET PO SCH (10:55)
--- NOTE | 2016-11-02 11:18 | PN ---
Progress Note, Physician Chief Complaint: Ms Cheung says every morning she feels dizzy and jittery and has tingles. She states normally around 11am she begins to feel better. Her roommate states that this am she was complaining of dizziness and some confusion. She is currently at her baseline now. She denies cp, sob, n/v. - Current Medication List Current Medications: Active Medications Alprazolam (Xanax -) 0.25 mg PO BID [facility] Last Admin: 11/02/16 10:55 Dose: 0.25 mg Aspirin (Ecotrin -) 81 mg PO DAILY [facility] Last Admin: 11/02/16 10:50 Dose: 81 mg Atorvastatin Calcium (Lipitor -) 10 mg PO [facility] Last Admin: 11/01/16 21:43 Dose: 10 mg Glimepiride (Amaryl -) 1 mg PO DAILY@0700 [facility] Last Admin: 11/02/16 07:05 Dose: 1 mg Insulin Aspart (Novolog Vial Sliding Scale -) 1 vial SQ TIDAC [facility] PRN Reason: Protocol Last Admin: 11/02/16 07:12 Dose: Not Given Metformin HCl (Glucophage -) 500 mg PO BID@0700,1630 [facility] Last Admin: 11/02/16 07:05 Dose: 500 mg Metoprolol Succinate (Toprol Xl -) 100 mg PO DAILY [facility] Last Admin: 11/02/16 10:55 Dose: 100 mg Nifedipine (Procardia Xl -) 60 mg PO DAILY [facility] Last Admin: 11/02/16 10:55 Dose: 60 mg Sitagliptin Phosphate (Januvia -) 100 mg PO DAILY@0700 [facility] Last Admin: 11/02/16 07:05 Dose: 100 mg Valsartan (Diovan -) 320 mg PO [facility] Last Admin: 11/01/16 21:43 Dose: 320 mg - Objective Vital Signs: Vital Signs Temperature 98.0 F 11/02/16 06:00 Pulse Rate 66 11/02/16 06:00 Respiratory Rate 18 11/02/16 06:00 Blood Pressure 148/59 11/02/16 06:00 O2 Sat by Pulse Oximetry (%) 99 11/02/16 05:00 Constitutional: Yes: Well Nourished, No Distress, Calm Cardiovascular: Yes: Regular Rate and Rhythm. No: Gallop, Murmur, Rub Respiratory: Yes: Regular, CTA Bilaterally. No: Rales, Rhonchi, Wheezes Gastrointestinal: Yes: Normal Bowel Sounds, Soft. No: Distention, Tenderness Extremities: Yes: WNL Edema: No Labs: INR, PTT INR 1.02 (0.82-1.09) 11/01/16 06:30 Problem List - Problems (1) Altered mental status Code(s): R41.82 - ALTERED MENTAL STATUS, UNSPECIFIED Qualifiers: Altered mental status type: disorientation Qualified Code(s): R41.0 - Disorientation, unspecified (2) Hyponatremia Code(s): E87.1 - HYPO-OSMOLALITY AND HYPONATREMIA (3) Anxiety Code(s): F41.9 - ANXIETY DISORDER, UNSPECIFIED (4) Hyperlipidemia Code(s): E78.5 - HYPERLIPIDEMIA, UNSPECIFIED (5) Hypertension Code(s): I10 - ESSENTIAL (PRIMARY) HYPERTENSION (6) Uncontrolled type 2 diabetes mellitus Code(s): E11.65 - TYPE 2 DIABETES MELLITUS WITH HYPERGLYCEMIA Assessment/Plan (1) Altered mental status Assessment/Plan: -occurs in am -? secondary to evening xanax, lower blood pressure, or low evening sugars -glucose levels are stable, lower suspicion -most likely xanax since has aspect of confusion -possibly secondary to valsartan -improved now Code(s): R41.82 - ALTERED MENTAL STATUS, UNSPECIFIED Qualifiers: Altered mental status type: disorientation Qualified Code(s): R41.0 - Disorientation, unspecified (2) Hyponatremia Assessment/Plan: -continues to improve -nephrology to see -holding lexapro Code(s): E87.1 - HYPO-OSMOLALITY AND HYPONATREMIA (3) Anxiety Assessment/Plan: -appreciate psychiatry assistance -started on xanax -may need to go to daily dosing Code(s): F41.9 - ANXIETY DISORDER, UNSPECIFIED (4) Hyperlipidemia Assessment/Plan: -continue lipitor Code(s): E78.5 - HYPERLIPIDEMIA, UNSPECIFIED (5) Hypertension Assessment/Plan: -continue nifedipine, toprol xl, and valsartan -? if would benefit from bid dosing of valsartan Code(s): I10 - ESSENTIAL (PRIMARY) HYPERTENSION (6) Uncontrolled type 2 diabetes mellitus Assessment/Plan: -continue metformin, amaryl, and januvia Code(s): E11.65 - TYPE 2 DIABETES MELLITUS WITH HYPERGLYCEMIA Dispo -plan for discharge this afternoon if remains clear -will d/w Dr Haynes about medication adjustment
--- NOTE | 2016-11-02 12:15 | DS ---
Physical Examination Vital Signs: Vital Signs Temperature 98.0 F 11/02/16 06:00 Pulse Rate 66 11/02/16 06:00 Respiratory Rate 18 11/02/16 06:00 Blood Pressure 148/59 11/02/16 06:00 O2 Sat by Pulse Oximetry (%) 99 11/02/16 05:00 Discharge Summary Reason For Visit: HYPONATREMIA,ALTERED MENTAL STATUS Current Active Problems Altered mental status (Acute) Hypoglycemia (Acute) Hyponatremia (Acute) Near syncope (Acute) Proteinuria (Acute) Hospital Course: Please refer to progress note written today but in short Ms Cheung is a pleasant 81 year old female who came in with AMS secondary to hyponatremia but also has underlying anxiety. She was seen by nephrology and her lexapro was discontinued as this can cause hyponatremia. Her sodium improved. She was seen by psychiatry and continued on xanax. However she complains of confusion when she wakes up in the morning. Her evening dose of xanax will be held as an outpatient and she has an appointment with Dr Haynes tomorrow to evaluate. Otherwise she is doing well and safe for discharge home. Case was discussed with Dr Haynes prior to discharge to coordinate medication regimen at home. 31 minutes spent in preparation of this discharge Condition: Stable - Instructions Diet, Activity, Other Instructions: resume previous diet and activity. Keep follow up appointment with Dr Haynes tomorrow. Referrals: Santos Haynes MD [Primary Care Provider] - Disposition: HOME - Home Medications Comprehensive Discharge Medication List: Ambulatory Orders Nifedipine [Nifedical Xl] 60 mg PO DAILY 06/13/13 Sitagliptin Phosphate [Januvia] 100 mg PO DAILY 06/13/13 Valsartan [Diovan] 320 mg PO DAILY 06/13/13 Metformin HCl [Glucophage -] 500 mg PO BID@0700,1630 #60 tablet 11/09/15 Metoprolol Succinate [Toprol XL -] 100 mg PO HS #30 tab.sr.24h 11/09/15 Atorvastatin Ca [Lipitor] 10 mg PO HS 10/31/16 Glimepiride [Amaryl] 1 mg PO DAILY 10/31/16 Meclizine HCl 25 mg PO PRN 10/31/16 Alprazolam [Xanax] 0.25 mg PO DAILY #30 tablet MDD 0.25 11/02/16 Aspirin Coated [Ecotrin -] 81 mg PO DAILY tab.ec 11/02/16
[2016-11-02 15:42] VITALS: BP 106/45; TEMP 97.6
[2016-11-02] MEDS ORDERED: SODIUM CHLORIDE 1 GM TABLET PO ONE (16:17)
--- NOTE | 2016-11-02 16:17 | PN ---
Progress Note, Physician History of Present Illness: Pt seen and examined at bedside. She is awake and appears comfortable. - Current Medication List Current Medications: Active Medications Alprazolam (Xanax -) 0.25 mg PO BID [facility] Last Admin: 11/02/16 10:55 Dose: 0.25 mg Aspirin (Ecotrin -) 81 mg PO DAILY [facility] Last Admin: 11/02/16 10:50 Dose: 81 mg Atorvastatin Calcium (Lipitor -) 10 mg PO [facility] Last Admin: 11/01/16 21:43 Dose: 10 mg Glimepiride (Amaryl -) 1 mg PO DAILY@0700 [facility] Last Admin: 11/02/16 07:05 Dose: 1 mg Insulin Aspart (Novolog Vial Sliding Scale -) 1 vial SQ TIDAC [facility] PRN Reason: Protocol Last Admin: 11/02/16 12:15 Dose: Not Given Metformin HCl (Glucophage -) 500 mg PO BID@0700,1630 [facility] Last Admin: 11/02/16 07:05 Dose: 500 mg Metoprolol Succinate (Toprol Xl -) 100 mg PO DAILY [facility] Last Admin: 11/02/16 10:55 Dose: 100 mg Nifedipine (Procardia Xl -) 60 mg PO DAILY [facility] Last Admin: 11/02/16 10:55 Dose: 60 mg Sitagliptin Phosphate (Januvia -) 100 mg PO DAILY@0700 [facility] Last Admin: 11/02/16 07:05 Dose: 100 mg Valsartan (Diovan -) 320 mg PO [facility] Last Admin: 11/01/16 21:43 Dose: 320 mg - Objective Vital Signs: Vital Signs Temperature 97.6 F 11/02/16 15:39 Pulse Rate 66 11/02/16 15:39 Respiratory Rate 18 11/02/16 15:39 Blood Pressure 106/45 11/02/16 15:39 O2 Sat by Pulse Oximetry (%) 99 11/02/16 05:00 Constitutional: Yes: Calm Eyes: Yes: Conjunctiva Clear HENT: Yes: Atraumatic Neck: Yes: Supple Cardiovascular: Yes: S1, S2 Respiratory: Yes: CTA Bilaterally Gastrointestinal: Yes: Normal Bowel Sounds, Soft Genitourinary: Yes: WNL Musculoskeletal: Yes: WNL Edema: No Neurological: Yes: Oriented Psychiatric: Yes: Oriented Labs: INR, PTT INR 1.02 (0.82-1.09) 11/01/16 06:30 Problem List - Problems (1) Altered mental status Code(s): R41.82 - ALTERED MENTAL STATUS, UNSPECIFIED Qualifiers: Altered mental status type: disorientation Qualified Code(s): R41.0 - Disorientation, unspecified (2) Hyponatremia Code(s): E87.1 - HYPO-OSMOLALITY AND HYPONATREMIA Assessment/Plan Current Medications Generic Name Dose Route Start Last Admin Trade Name Freq PRN Reason Stop Dose Admin Alprazolam 0.25 mg 10/31/16 22:00 11/02/16 10:55 Xanax - PO 0.25 mg BID [facility] Administration Aspirin 81 mg 11/01/16 10:00 11/02/16 10:50 Ecotrin - PO 81 mg DAILY [facility] Administration Atorvastatin Calcium 10 mg 10/31/16 22:00 11/01/16 21:43 Lipitor - PO 10 mg HS [facility] Administration Glimepiride 1 mg 11/01/16 07:00 11/02/16 07:05 Amaryl - PO 1 mg DAILY@0700 [facility] Administration Insulin Aspart 1 vial 10/31/16 22:15 11/02/16 12:15 Novolog Vial Sliding Scale - SQ Not Given TIDAC [facility] Protocol Metformin HCl 500 mg 11/01/16 07:00 11/02/16 07:05 Glucophage - PO 500 mg BID@0700,1630 [facility] Administration Metoprolol Succinate 100 mg 11/01/16 10:00 11/02/16 10:55 Toprol Xl - PO 100 mg DAILY [facility] Administration Nifedipine 60 mg 11/01/16 10:00 11/02/16 10:55 Procardia Xl - PO 60 mg DAILY [facility] Administration Sitagliptin Phosphate 100 mg 11/01/16 07:00 11/02/16 07:05 Januvia - PO 100 mg DAILY@0700 [facility] Administration Valsartan 320 mg 11/01/16 22:00 11/01/16 21:43 Diovan - PO 320 mg HS [facility] Administration Laboratory Tests 10/31/16 10/31/16 10/31/16 14:00 20:00 21:30 Serum Osmolality 271 L TSH Cortisol AM Sample Urine Osmolality 275 Ur Random Sodium 64 11/01/16 11/01/16 06:30 06:30 Serum Osmolality TSH 2.11 Cortisol AM Sample 25.0 Urine Osmolality Ur Random Sodium Impression 1. hyponatremia - hypo-osmolar 2. CAD s/p CABG 3. DM 4. HTN 5. hyperlipidemia 6. anxiety 7. GERD 8. hypomagnesemia Plan - sodium is improving - likely etiology is lexapro - cont free water restriction - will give another salt tab - would recommend restarting lexapro, can see psych for alternate agent - will see pt in office - discussed with attending Dr Brizuela
== END 2016-11-02 17:17 | disposition home or self-care (01) | DRG 640 ==
LOC: JER 10:29 → UNDOADMOB 13:35 → JERBED 13:35 → INTOOBSV 13:35 → JERBED 17:45 → J5S 20:48 → OBSVTOIN 11-02 09:58
PROVIDERS: ADMIT Internal Medicine; ATTEND Internal Medicine
DX: E87.1 Hypo-osmolality and hyponatremia (principal); G93.40 Encephalopathy, unspecified; K57.92 Diverticulitis of intestine, part unspecified, without perforation or abscess without bleeding; I25.10 Atherosclerotic heart disease of native coronary artery without angina pectoris; I12.9 Hypertensive chronic kidney disease with stage 1 through stage 4 chronic kidney disease, or unspecified chronic kidney disease; E11.22 Type 2 diabetes mellitus with diabetic chronic kidney disease; N18.9 Chronic kidney disease, unspecified; K21.9 Gastro-esophageal reflux disease without esophagitis; E78.5 Hyperlipidemia, unspecified; F41.9 Anxiety disorder, unspecified; E83.42 Hypomagnesemia; E11.65 Type 2 diabetes mellitus with hyperglycemia; K76.0 Fatty (change of) liver, not elsewhere classified; K46.9 Unspecified abdominal hernia without obstruction or gangrene; M19.90 Unspecified osteoarthritis, unspecified site; D47.2 Monoclonal gammopathy; T43.225A Adverse effect of selective serotonin reuptake inhibitors, initial encounter; M54.5 Low back pain; M48.00 Spinal stenosis, site unspecified; Z95.1 Presence of aortocoronary bypass graft; Z95.5 Presence of coronary angioplasty implant and graft
CPT/HCPCS: 36415; 70450-TC; 71010-TC; 80048; 80053; 81003; 81015; 82436; 82533; 82550; 83690; 83735; 83930; 83935; 84100; 84133; 84300; 84443; 84484; 85025; 85610; 85730; 87086; 93005; 93010; 99285-25; G0378

== ENCOUNTER 2018-03-16 05:03 | Observation (INO) | payer BC, OTHER ==
[2018-03-16 05:21] VITALS: BMI 33.7
--- NOTE | 2018-03-16 05:33 | PDOC ---
History of Present Illness - General Chief Complaint: Altered Mental Status Stated Complaint: AMS Time Seen by Provider: 03/16/18 05:16 History Source: Patient Exam Limitations: No Limitations - History of Present Illness Initial Comments: 03/16/18 05:27 The patient is an 82F with a PMH of DM, hypertension, hyperlipidemia, CAD s/p CABG, CKD, GERD, large LUQ hernia who presents to the ER with AMS. The patient is with her daughter who provides the history. The daughter states that she was alerted that the patient stepped out of bed and went to the bathroom. After returning from the bathroom, the patient began calling for her mother and father , both of which are . She was also noted to be calling them in our ER. The patient denies any acute complaints including fever, chills, nausea, vomiting, cough, and dysuria, CP, and SOB. Past History - Past Medical History Allergies/Adverse Reactions: Allergies Allergy/AdvReac Type Severity Reaction Status Date / Time daptomycin AdvReac Verified 03/16/18 05:49 piperacillin [From Zosyn] AdvReac Verified 03/16/18 05:49 rifampin AdvReac Verified 03/16/18 05:49 tazobactam [From Zosyn] AdvReac Verified 03/16/18 05:49 vancomycin AdvReac Verified 03/16/18 05:49 Home Medications: Ambulatory Orders Alprazolam [Xanax] 0.25 mg PO DAILY 03/16/18 Aspirin Coated [Ecotrin -] 81 mg PO DAILY 03/16/18 Atorvastatin Ca [Lipitor] 10 mg PO HS 03/16/18 Citalopram Hydrobromide [Celexa -] 10 mg PO DAILY 03/16/18 Divalproex *ER* [Depakote *ER* -] 250 mg PO BID 03/16/18 Donepezil HCl [Aricept] 5 mg PO DAILY 03/16/18 Glimepiride [Amaryl -] 2 mg PO AM 03/16/18 Losartan Potassium 100 mg PO DAILY 03/16/18 Metoprolol Succinate [Toprol Xl -] 100 mg PO DAILY 03/16/18 Nifedipine [Nifedipine ER] 60 mg PO DAILY 03/16/18 Sitagliptin Phosphate [Januvia] 100 mg PO DAILY 03/16/18 Anemia: No Asthma: No Cancer: No Cardiac Disorders: Yes (CAD) CVA: No COPD: No CHF: No Dementia: No Diabetes: Yes GI Disorders: Yes (GERD-DIVERTICULITIS) Disorders: No HTN: Yes Hypercholesterolemia: Yes Liver Disease: No Psychiatric Problems: Yes (ANXEITY) Seizures: No Thyroid Disease: No - Surgical History Abdominal Surgery: Yes (EXPLORATORY LAP - HEMICOLECTOMY-) Appendectomy: No Cardiac Surgery: Yes (CABG) Cholecystectomy: No Lung Surgery: No Neurologic Surgery: No Orthopedic Surgery: No - Immunization History Immunization Up to Date: Yes - Suicide/Smoking/Psychosocial Hx Smoking History: Unknown if ever smoked Have you smoked in the past 12 months: No Information on smoking cessation initiated: No Hx Alcohol Use: No Drug/Substance Use Hx: No Substance Use Type: None Review of Systems - Review of Systems Able to Perform ROS?: No (delirious) Is the patient limited Kazakh proficient: No *Physical Exam - Vital Signs Last Vital Signs Temp Pulse Resp BP Pulse Ox 97.9 F 69 18 168/106 H 95 03/16/18 05:09 03/16/18 05:09 03/16/18 05:09 03/16/18 05:09 03/16/18 05:09 - Physical Exam Comments: 03/16/18 05:33 GENERAL: Well developed, well nourished. Awake and alert. No acute distress. HEENT: Normocephalic, atraumatic. Hearing grossly normal. Moist mucous membranes. PERRLA, EOMI. No conjunctival pallor. Sclera are non-icteric. NECK: Supple. Full ROM. CARDIOVASCULAR: Regular rate and rhythm. No murmurs, rubs, or gallops. PULMONARY: No evidence of respiratory distress. Lungs clear to auscultation bilaterally. No wheezing, rales or rhonchi. ABDOMINAL: Soft. Non-tender. Non-distended. No rebound or guarding. GENITOURINARY: No CVA tenderness bilaterally. MUSCULOSKELETAL: Normal range of motion at all joints. No bony deformities or tenderness. EXTREMITIES: No cyanosis. No clubbing. No edema. No calf tenderness or swelling. SKIN: Warm and dry. Normal capillary refill. No rashes. No jaundice. NEUROLOGICAL: Alert, awake, appropriate. A&O to person only. Cranial nerves 2- 12 grossly intact. Normal speech. PSYCHIATRIC: Cooperative. Good eye contact. Appropriate mood and affect. Heart Score/ECG Review #1 ECG reviewed & interpreted by me at: 06:35 General ECG Interpretation: Sinus Rhythm, Normal Rate, Normal Intervals, No acute ischemic changes Compared to previous ECG there are: Previous ECG unavail 03/16/18 06:35 Sinus rhythm vent rate 75 MD unmeasured QRS 82 QTc 427 Irregular sinus rhythm, possibly sick sinus No STD or ELVIRA No signs of acute ischemia ED Treatment Course - LABORATORY CBC & Chemistry Diagram: 03/16/18 06:07 03/16/18 06:07 - RADIOLOGY Radiology Studies Ordered: Category Date Time Status HEAD CT WITHOUT CONTRAST [CT] Stat CT Scan 03/16/18 05:26 Ordered Medical Decision Making - Medical Decision Making 03/16/18 05:34 The patient is an 82F with an extensive PMH who presents to the ER with AMS and hallucinations. Daughter states that this happened last year and she was found to be hyponatremic. Pending labs and imaging to r/o intracranial process, ACS, electrolyte abnormality and infectious process. 03/16/18 06:36 EKG showing irregular sinus rhythm. Pending labs and troponins. 03/16/18 07:20 Pt signed out to Dr. Hager for further care. *DC/Admit/Observation/Transfer Diagnosis at time of Disposition: Altered mental status - Referrals - Patient Instructions - Post Discharge Activity
--- NOTE | 2018-03-16 05:50 | PDOC ---
Attending Attestation - Resident Resident Name: [email or web address] - ED Attending Attestation I have performed the following: I have examined & evaluated the patient, The case was reviewed & discussed with the resident, I agree w/resident's findings & plan - HPI HPI: 03/16/18 05:52 Pt comes with AMS, as witnessed by her daughter - Physicial Exam PE: 03/16/18 05:52 Agree with resident exam - Medical Decision Making 03/16/18 05:[address] head, CXR, labs UA and she will likely be admitted. 03/16/18 06:12 On exam now, pt is alert and awake, and she is following commands. Pt complains of right sided headache and jaw and face pain. 03/17/18 06:14 Pt signed out to the day team; they will likely admit the patient once all results are back.
[2018-03-16 06:19] LABS: BASO % 0.7 % (0-2.0); EOS % 0.5 % (0-4.5); HEMATOCRIT 38.9 % (32.4-45.2); HEMOGLOBIN 12.6 GM/dL (10.7-15.3); LYMPH % 20.2 % (8-40); MCH 30.8 pg (25.7-33.7); MCHC 32.5 g/dl (32.0-36.0); MEAN CELL VOLUME 94.6 fl (80-96); MEAN PLT VOLUME 7.8 fl (7.5-11.1); MONO % 6.2 % (3.8-10.2); NEUT % 72.4 % (42.8-82.8); PLATELET COUNT 205 K/MM3 (134-434); RBC 4.11 M/mm3 (3.60-5.2); RDW 14.6 % (11.6-15.6); WHITE BLOOD COUNT 8.4 K/mm3 (4.0-10.0)
[2018-03-16 06:36] LABS: URINE APPEARANCE CLEAR; URINE BILIRUBIN NEGATIVE (<2.0 mg/dL); URINE COLOR COLORLESS; URINE GLUCOSE (UA) NEGATIVE (NEGATIVE); URINE KETONE NEGATIVE (NEGATIVE); URINE LEUK ESTERASE NEGATIVE (NEGATIVE); URINE NITRITE NEGATIVE (NEGATIVE); URINE PROTEIN NEGATIVE (NEGATIVE); URINE UROBILINOGEN NEGATIVE mg/dL (0.2-1.0)
[2018-03-16 06:55] LABS: ALBUMIN 3.3 g/dl (3.4-5.0); ALK PHOS 78 U/L (45-117); ANION GAP 12 MMOL/L (8-16); BILIRUBIN,TOTAL 0.2 mg/dL (0.2-1); BLOOD UREA NITROGEN 24 mg/dL (7-18); CALCIUM 8.8 mg/dL (8.5-10.1); CHLORIDE 101 mmol/L (98-107); CO2 25 mmol/L (21-32); CREATININE 0.9 mg/dL (0.55-1.3); GLUCOSE,RANDOM 140 mg/dL (74-106); POTASSIUM 4.3 mmol/L (3.5-5.1); SGOT/AST 23 U/L (15-37); SGPT/ALT 29 U/L (13-61); SODIUM 137 mmol/L (136-145); TOT PROT 7.6 g/dl (6.4-8.2)
--- NOTE | 2018-03-16 08:24 | PDOC ---
*Physical Exam - Vital Signs Last Vital Signs Temp Pulse Resp BP Pulse Ox 98.2 F 67 17 152/69 97 03/16/18 07:54 03/16/18 07:54 03/16/18 07:54 03/16/18 07:54 03/16/18 07:54 ED Treatment Course - LABORATORY CBC & Chemistry Diagram: 03/16/18 06:07 03/16/18 06:07 - ADDITIONAL ORDERS Additional order review: Laboratory Results 03/16/18 03/16/18 03/16/18 06:07 05:30 05:30 Sodium 137 Potassium 4.3 Chloride 101 Carbon Dioxide 25 Anion Gap 12 BUN 24 H Creatinine 0.9 Creat Clearance w eGFR 59.94 Random Glucose 140 H Calcium 8.8 Total Bilirubin 0.2 AST 23 ALT 29 Alkaline Phosphatase 78 Creatine Kinase 53 Troponin I < 0.02 Total Protein 7.6 Albumin 3.3 L TSH 2.09 Urine Color Colorless Urine Appearance Clear Urine pH 6.0 Ur Specific [place] 1.005 L Urine Protein Negative Urine Glucose (UA) Negative Urine Ketones Negative Urine Blood Negative Urine Nitrite Negative Urine Bilirubin Negative Urine Urobilinogen Negative Ur Leukocyte Esterase Negative 03/16/18 06:07 RBC 4.11 MCV 94.6 MCHC 32.5 RDW 14.6 MPV 7.8 Neutrophils % 72.4 Lymphocytes % 20.2 Monocytes % 6.2 Eosinophils % 0.5 Basophils % 0.7 *DC/Admit/Observation/Transfer Diagnosis at time of Disposition: Altered mental status Qualifiers: Altered mental status type: transient alteration of awareness Qualified Code(s) : R40.4 - Transient alteration of awareness - Discharge Dispostion Decision to Admit order: Yes - Referrals Referrals: Santos Haynes MD [Primary Care Provider] - - Patient Instructions - Post Discharge Activity
--- NOTE | 2018-03-16 08:34 | HP ---
Admitting History and Physical - Primary Care Physician PCP: Sp Haynes - Admission Chief Complaint: An episode of confusion History of Present Illness: 82 yrs old F lives with daughter ambulates unsupported H/O Dementia anxiety, HTN , hypercholaterolemia, BIB family to evaluaate for an episode of cnfusion as per daughter she monitors patient bed room with a camera, as per daughter patient went to toilet after coming back she was sitting on a couch, confused , starring taliking about peoples not oriented with some slurring of spech, 911 was called and patient was brought to Ed for evaluation, patient became normal at base line on arrival to ED no fever chills but patient c/o Rt sided haed ache since morning, denies any nausea, vomiting, chest pain, SOB nasal congestion or sick contact, at the time of examination in Ed hemodynamically stable and afebrile communicating normally unable to recall last night episode. - Past Medical History Cardiovascular: Yes: CAD, HTN, Hyperlipdemia Gastrointestinal: Yes: Diverticulosis, GERD, GI Bleed Hepatobiliary: Yes: Other (fatty liver disease) Renal/: Yes: Hematuria (benign essential), Other (JACK) Heme/Onc: Yes: Anemia, B12 Deficiency Psych: Yes: Anxiety Musculoskeletal: Yes: Chronic low back pain (/spinal stenosis), Osteoarthritis Endocrine: Yes: Diabetes Mellitus - Past Surgical History Past Surgical History: Yes: CABG, Cataract Removal (bilateral), Colectomy ( hemicolectomy for GI bleed) - Smoking History Smoking history: Unknown if ever smoked Have you smoked in the past 12 months: No - Alcohol/Substance Use Hx Alcohol Use: No History of Substance Use: reports: None - Social History ADL: Independent Occupation: retired dressmaker History of Recent Travel: No Home Medications - Allergies Allergies/Adverse Reactions: Allergies Allergy/AdvReac Type Severity Reaction Status Date / Time daptomycin AdvReac Verified 03/16/18 05:49 piperacillin [From Zosyn] AdvReac Verified 03/16/18 05:49 rifampin AdvReac Verified 03/16/18 05:49 tazobactam [From Zosyn] AdvReac Verified 03/16/18 05:49 vancomycin AdvReac Verified 03/16/18 05:49 - Home Medications Home Medications: Ambulatory Orders Alprazolam [Xanax] 0.25 mg PO DAILY 03/16/18 Citalopram Hydrobromide [Celexa -] 10 mg PO DAILY 03/16/18 Donepezil HCl [Aricept] 5 mg PO DAILY 03/16/18 Glimepiride [Amaryl -] 2 mg PO DAILY 03/16/18 Losartan Potassium 100 mg PO DAILY 03/16/18 Metoprolol Succinate [Toprol Xl -] 100 mg PO DAILY 03/16/18 Nifedipine [Nifedipine ER] 60 mg PO DAILY 03/16/18 Sitagliptin Phosphate [Januvia] 100 mg PO DAILY 03/16/18 Family Disease History - Family Disease History Family Disease History: Other: Father (old age), Mother (cirrhosis), Brother ( gastric cancer) Review of Systems - Review of Systems Constitutional: denies: Chills, Diaphoresis, Fever Eyes: denies: Blind Spots, Blurred Vision, Double Vision, Photophobia, Recent Change in Vision HENT: denies: Difficult Swallowing, Ear Discharge Neck: denies: Decreased ROM, Lumps, Pain on Movement Cardiovascular: denies: Chest Pain, Edema, Palpitations, Shortness of Breath Respiratory: denies: Cough, Exercise Intolerance, Hemoptysis Gastrointestinal: denies: Abdominal Pain, Bloating, Constipation, Diarrhea Genitourinary: denies: Burning, Discharge, Dysuria, Flank Pain Neurological: reports: Change in LOC, Confusion, Headache. denies: Change in Speech, Dizziness, Incoordination, Numbness, Parasthesia, Seizure, Syncope, Tremors, Unsteady Gait Psychiatric: reports: Altered Sleep Pattern, Anxiety Physical Examination Vital Signs: Vital Signs Temperature 98.2 F 03/16/18 07:54 Pulse Rate 67 03/16/18 07:54 Respiratory Rate 17 03/16/18 07:54 Blood Pressure 152/69 03/16/18 07:54 O2 Sat by Pulse Oximetry (%) 97 03/16/18 07:54 Constitutional: Yes: Well Nourished, No Distress, Calm HENT: Yes: Atraumatic, Other (Mm moist no anemia, PERRLA EOMI) Neck: Yes: Supple, Trachea Midline. No: Decreased ROM, Lymphadenopathy Cardiovascular: Yes: Regular Rate and Rhythm, Bradycardia, Tachycardia, S1, S2. No: JVD, Murmur Respiratory: Yes: Regular, CTA Bilaterally Gastrointestinal: Yes: Normal Bowel Sounds, Soft Extremities: No: Calf Tenderness Edema: No Peripheral Pulses: Left Doralis Pedis: 1+, Right Dorsalis Pedis: 1+ Neurological: Yes: Alert, Oriented, Cran Nerves II-XII Intact. No: Aphasia, Asterixis, Ataxia, Dysarthria, Facial Droop, Numbness ...Motor Strength: WNL, LUE, LLE, RUE, RLE Labs: CBC, BMP 03/16/18 06:07 03/16/18 06:07 CBC,CMP WBC 8.4 K/mm3 (4.0-10.0) 03/16/18 06:07 RBC 4.11 M/mm3 (3.60-5.2) 03/16/18 06:07 Hgb 12.6 GM/dL (10.7-15.3) 03/16/18 06:07 Hct 38.9 % (32.4-45.2) 03/16/18 06:07 MCV 94.6 fl (80-96) 03/16/18 06:07 MCH 30.8 pg (25.7-33.7) 03/16/18 06:07 MCHC 32.5 g/dl (32.0-36.0) 03/16/18 06:07 RDW 14.6 % (11.6-15.6) 03/16/18 06:07 Plt Count 205 K/MM3 (134-434) 03/16/18 06:07 MPV 7.8 fl (7.5-11.1) 03/16/18 06:07 Absolute Neuts (auto) 6.1 K/mm3 (1.5-8.0) 03/16/18 06:07 Neutrophils % 72.4 % (42.8-82.8) 03/16/18 06:07 Lymphocytes % 20.2 % (8-40) 03/16/18 06:07 Monocytes % 6.2 % (3.8-10.2) 03/16/18 06:07 Eosinophils % 0.5 % (0-4.5) 03/16/18 06:07 Basophils % 0.7 % (0-2.0) 03/16/18 06:07 Nucleated RBC % 0 % (0-0) 03/16/18 06:07 ESR 16 mm/hr (0-30) 03/16/18 11:28 Sodium 137 mmol/L (136-145) 03/16/18 06:07 Potassium 4.3 mmol/L (3.5-5.1) 03/16/18 06:07 Chloride 101 mmol/L (98-107) 03/16/18 06:07 Carbon Dioxide 25 mmol/L (21-32) 03/16/18 06:07 Anion Gap 12 MMOL/L (8-16) 03/16/18 06:07 BUN 24 mg/dL (7-18) H 03/16/18 06:07 Creatinine 0.9 mg/dL (0.55-1.3) 03/16/18 06:07 Creat Clearance w eGFR 59.94 (>60) 03/16/18 06:07 Random Glucose 140 mg/dL (74-106) H 03/16/18 06:07 Calcium 8.8 mg/dL (8.5-10.1) 03/16/18 06:07 Total Bilirubin 0.2 mg/dL (0.2-1) 03/16/18 06:07 AST 23 U/L (15-37) 03/16/18 06:07 ALT 29 U/L (13-61) 03/16/18 06:07 Alkaline Phosphatase 78 U/L (45-117) 03/16/18 06:07 Creatine Kinase 53 IU/L (26-192) 03/16/18 06:07 Troponin I < 0.02 ng/ml (0.00-0.05) 03/16/18 06:07 C-Reactive Protein < 0.3 MG/DL (0.00-0.3) 03/16/18 11:28 Total Protein 7.6 g/dl (6.4-8.2) 03/16/18 06:07 Albumin 3.3 g/dl (3.4-5.0) L 03/16/18 06:07 TSH 2.09 uIU/ml (0.358-3.74) 03/16/18 05:30 Imaging - Results Chest X-ray: Report Reviewed (No infiltrates) Cat Scan: Report Reviewed (Head; no acute changes) EKG: Report Reviewed (HR 74 IInd Degree Type [address] changes) Problem List - Problems (1) TGA (transient global amnesia) Assessment/Plan: Patient present with an episode of loss of orientation unable to recall suggestive of TGB secondary to metabolic abnormality there is an association with head ache will observe closely neurology consult, consider MRI , ? EEG fall precautions, neuro check f/u B 12TSH, Lipid panel HBA1C, carotid Doppler and ECHO Code(s): G45.4 - TRANSIENT GLOBAL AMNESIA (2) Hx of CABG Code(s): Z95.1 - PRESENCE OF AORTOCORONARY BYPASS GRAFT (3) Hypertension Code(s): I10 - ESSENTIAL (PRIMARY) HYPERTENSION (4) Uncontrolled type 2 diabetes mellitus Code(s): E11.65 - TYPE 2 DIABETES MELLITUS WITH HYPERGLYCEMIA (5) Hyperlipidemia Code(s): E78.5 - HYPERLIPIDEMIA, UNSPECIFIED (6) Anxiety Code(s): F41.9 - ANXIETY DISORDER, UNSPECIFIED
--- NOTE | 2018-03-16 10:26 | CON.NEURO ---
Consult - Past Medical History Cardio/Vascular: Yes: CAD, HTN, Hyperlipdemia Gastrointestinal: Yes: Diverticulosis, GERD, GI Bleed Hepatobiliary: Yes: Other (fatty liver disease) Renal/: Yes: Hematuria (benign essential), Other (JACK) Psych: Yes: Anxiety Musculoskeletal: Yes: Chronic low back pain (/spinal stenosis), Osteoarthritis Endocrine: Yes: Diabetes Mellitus - Past Surgical History Past Surgical History: Yes: CABG, Cataract Removal (bilateral), Colectomy ( hemicolectomy for GI bleed) - Alcohol/Substance Use Hx Alcohol Use: No History of Substance Use: reports: None - Smoking History Smoking history: Unknown if ever smoked Have you smoked in the past 12 months: No - Social History Usual Living Arrangement: With Significant Other ADL: Independent Occupation: retired dressmaker History of Recent Travel: No Home Medications - Allergies Allergies/Adverse Reactions: Allergies Allergy/AdvReac Type Severity Reaction Status Date / Time daptomycin AdvReac Verified 03/16/18 05:49 piperacillin [From Zosyn] AdvReac Verified 03/16/18 05:49 rifampin AdvReac Verified 03/16/18 05:49 tazobactam [From Zosyn] AdvReac Verified 03/16/18 05:49 vancomycin AdvReac Verified 03/16/18 05:49 - Home Medications Home Medications: Ambulatory Orders Alprazolam [Xanax] 0.25 mg PO DAILY 03/16/18 Citalopram Hydrobromide [Celexa -] 10 mg PO DAILY 03/16/18 Donepezil HCl [Aricept] 5 mg PO DAILY 03/16/18 Glimepiride [Amaryl -] 2 mg PO DAILY 03/16/18 Losartan Potassium 100 mg PO DAILY 03/16/18 Metoprolol Succinate [Toprol Xl -] 100 mg PO DAILY 03/16/18 Nifedipine [Nifedipine ER] 60 mg PO DAILY 03/16/18 Sitagliptin Phosphate [Januvia] 100 mg PO DAILY 03/16/18 Family Disease History - Family Disease History Family Disease History: Other: Father (old age), Mother (cirrhosis), Brother ( gastric cancer) Physical Exam-Neuro Vital Signs: Vital Signs Temperature 98.2 F 03/16/18 07:54 Pulse Rate 67 03/16/18 07:54 Respiratory Rate 17 03/16/18 07:54 Blood Pressure 152/69 03/16/18 07:54 O2 Sat by Pulse Oximetry (%) 97 03/16/18 07:54 Labs: CBC, BMP 03/16/18 06:07 03/16/18 06:07 Assessment/Plan cc Confusion lasting one day HPI 82 year old female history of DM, HTN, HLD, CAD S/P CABG, Recently daignosed with Alzheimer disease and have history of mood disorder and anxiety. She was feeling dizzy yeserday and after that she started talking to her father an dmother. She remains confused, and at hospital her bp was high and bun was slightly raised. At Admission,She was afebrile, no focal weakness, seizure or high grade fever. She is claustrophobic for mri and ct head is normal. She is feeling better and able to recognize her daughter and is being more appropriate. PMH as above. Social HX,FH,ROS reviewed in chart Allergies/Adverse Reactions: Allergies Allergy/AdvReac Type Severity Reaction Status Date / Time daptomycin AdvReac Verified 03/16/18 05:49 piperacillin [From Zosyn] AdvReac Verified 03/16/18 05:49 rifampin AdvReac Verified 03/16/18 05:49 tazobactam [From Zosyn] AdvReac Verified 03/16/18 05:49 vancomycin AdvReac Verified 03/16/18 05:49 Home Medications: Alprazolam [Xanax] 0.25 mg PO DAILY 03/16/18 Citalopram Hydrobromide [Celexa -] 10 mg PO DAILY 03/16/18 Donepezil HCl [Aricept] 5 mg PO DAILY 03/16/18 Glimepiride [Amaryl -] 2 mg PO DAILY 03/16/18 Losartan Potassium 100 mg PO DAILY 03/16/18 Metoprolol Succinate [Toprol Xl -] 100 mg PO DAILY 03/16/18 Nifedipine [Nifedipine ER] 60 mg PO DAILY 03/16/18 Sitagliptin Phosphate [Januvia] 100 mg PO DAILY 03/16/18 Neurological Examination bp at admission 168/106 Alert oriented x 2, she knows today is sunday adn march and she do not follow exact dates, she know she is at [facility], speech is normal EOMI, PUPILS REACTIVE, no face asymmetry cn all intact Motor 5/5 all ext sensation is normal reflex are generalized diminished CT head : no acute findings BUN 24 Assessment /Plan Transient behavior difficulty , likely to be metabolic encephalopaty secondary to high bp, dehydration ( bun is high), and Medication ( recently started on celexa, xanax being tapered off and started on aricept) -- Clinically unlikley to be stroke, Status epilepticus or Meningitis She has been improving since she come to hospital and almost back to baseline, as discussed with daughter at bedside. PLAN : MRI of brain if possible, as she is claustrophobic - Hydrate, watch BP - xanax can be tapered off over the director long term care, as can cause memory difficulty Thanking you so much Sheldon Lanier MD
--- NOTE | 2018-03-16 12:36 | EKG ---
Test Reason : Blood Pressure : / mmHG Vent. Rate : 072 BPM Atrial Rate : 101 BPM P-R Int : 000 ms QRS Dur : 082 ms QT Int : 390 ms P-R-T Axes : 000 -16 039 degrees QTc Int : 427 ms POOR DATA QUALITY, INTERPRETATION MAY BE ADVERSELY AFFECTED Normal sinus rhythm with freqent APCs CANNOT RULE OUT ANTERIOR INFARCT , AGE UNDETERMINED ABNORMAL ECG Confirmed by KEVIN DICKINSON MD ([id number]) on 03/16/2018 12:36:22 PM Referred By: Confirmed By:KEVIN DICKINSON MD
[2018-03-16] MEDS: GLIMEPIRIDE 2 MG TABLET (FP) PO SCH (12:38)
[2018-03-16] MEDS: CITALOPRAM HYDROBROMIDE 10 MG TABLET (FP) PO SCH (12:38)
[2018-03-16] MEDS: sitaGLIPtin PHOSPHATE 100 MG TABLET (FP) PO SCH (12:38)
[2018-03-16] MEDS: DONEPEZIL HCL 5 MG TABLET (FP) PO SCH (12:38)
[2018-03-16] MEDS: LOSARTAN POTASSIUM 50 MG TABLET (FP) PO SCH (12:39)
[2018-03-16] MEDS: NIFEdipine E.R 60 MG TABLET (UD) PO SCH (12:39)
[2018-03-16] MEDS: ALPRAZolam 0.25 MG TABLET PO SCH (12:40)
[2018-03-16] MEDS ORDERED: ALPRAZolam 0.25 MG TABLET ONE (12:40)
[2018-03-16] MEDS: INSULIN SLIDING SCALE (NOVOLOG) 1 VIAL SQ SCH ×2 (14:40→16:57)
[2018-03-16] MEDS ORDERED: LORazepam 2 MG/ML SDV VIAL IM ONE (17:04)
[2018-03-16] MEDS: DIVALPROEX NA *ER* EXTEND REL 250 MG TABLET.SA PO SCH (21:59)
[2018-03-16] MEDS ORDERED: ATORVASTATIN CA 10 MG TABLET (FP) PO SCH (22:00)
[2018-03-16] MEDS ORDERED: ACETAMINOPHEN 325 MG TABLET (FP) PO PRN (23:01)
[2018-03-17] MEDS: GLIMEPIRIDE 2 MG TABLET (FP) PO SCH (06:21)
[2018-03-17] MEDS: sitaGLIPtin PHOSPHATE 100 MG TABLET (FP) PO SCH (06:21)
[2018-03-17] MEDS: INSULIN SLIDING SCALE (NOVOLOG) 1 VIAL SQ SCH ×2 (06:23→12:00)
[2018-03-17 07:41] LABS: BASO % 0.6 % (0-2.0); HEMATOCRIT 38.5 % (32.4-45.2); HEMOGLOBIN 13.3 GM/dL (10.7-15.3); LYMPH % 24.2 % (8-40); MCH 32.9 pg (25.7-33.7); MCHC 34.5 g/dl (32.0-36.0); MEAN CELL VOLUME 95.3 fl (80-96); MEAN PLT VOLUME 8.3 fl (7.5-11.1); MONO % 9.7 % (3.8-10.2); NEUT % 64.5 % (42.8-82.8); PLATELET COUNT 231 K/MM3 (134-434); RBC 4.04 M/mm3 (3.60-5.2); RDW 14.6 % (11.6-15.6); WHITE BLOOD COUNT 8.6 K/mm3 (4.0-10.0)
--- NOTE | 2018-03-17 07:49 | PN ---
Progress Note, Physician Chief Complaint: No new episodes of confusion, remained stable - Current Medication List Current Medications: Active Medications Acetaminophen (Tylenol -) 650 mg PO Q6H PRN PRN Reason: Fever Or Pain Last Admin: 03/16/18 23:16 Dose: 650 mg Alprazolam (Xanax -) 0.25 mg PO DAILY [facility] Last Admin: 03/16/18 12:40 Dose: 0.25 mg Aspirin (Asa -) 81 mg PO DAILY [facility] Atorvastatin Calcium (Lipitor -) 10 mg PO HS [facility] Last Admin: 03/16/18 21:59 Dose: 10 mg Citalopram Hydrobromide (Celexa -) 10 mg PO DAILY [facility] Last Admin: 03/16/18 12:38 Dose: 10 mg Divalproex Sodium (Depakote *Er* -) 250 mg PO BID [facility] Last Admin: 03/16/18 21:59 Dose: 250 mg Donepezil HCl (Aricept -) 5 mg PO DAILY [facility] Last Admin: 03/16/18 12:38 Dose: 5 mg Glimepiride (Amaryl -) 2 mg PO AM [facility] Last Admin: 03/17/18 06:21 Dose: 2 mg Insulin Aspart (Novolog Vial Sliding Scale -) 1 vial SQ TIDAC [facility]; Protocol Last Admin: 03/17/18 06:23 Dose: Not Given Losartan Potassium (Cozaar -) 100 mg PO DAILY [facility] Last Admin: 03/16/18 12:39 Dose: 100 mg Metoprolol Tartrate (Lopressor -) 50 mg PO DAILY [facility] Nifedipine (Procardia Xl -) 60 mg PO DAILY [facility] Last Admin: 03/16/18 12:39 Dose: 60 mg Sitagliptin Phosphate (Januvia -) 100 mg PO AM [facility] Last Admin: 03/17/18 06:21 Dose: 100 mg - Objective Vital Signs: Vital Signs Temperature 98.1 F 03/17/18 06:00 Pulse Rate 70 03/17/18 06:00 Respiratory Rate 20 03/17/18 06:00 Blood Pressure 152/74 03/17/18 06:00 O2 Sat by Pulse Oximetry (%) 95 03/16/18 21:00 Constitutional: Well Nourished, No Distress, Calm HEENT: Atraumatic, Other (Mm moist no anemia, PERRLA EOMI) Neck: Supple, Trachea Midline. No: Decreased ROM, Lymphadenopathy Cardiovascular: Yes: Regular Rate and Rhythm, Bradycardia, Tachycardia, S1, S2. No: JVD, Murmur Respiratory: Yes: Regular, CTA Bilaterally Gastrointestinal: Normal Bowel Sounds, Soft Extremities: No: Calf Tenderness, no Edema: No, Peripheral Pulses: Left Doralis Pedis: 1+, Right Dorsalis Pedis: 1+ Neurological: Yes: Alert, Oriented, Cran Nerves II-XII Intact. No: Aphasia, Asterixis, Ataxia, Dysarthria, Facial Droop, Numbness, Motor Strength: WNL, LUE , LLE, RUE, RLE Labs: CBC, BMP 03/17/18 06:30 03/17/18 06:30 - ....Imaging EKG: Report Reviewed (Rpt EKG NSR) Problem List - Problems (1) TGA (transient global amnesia) Assessment/Plan: Patient remained stable, evaluated by the Neurology consult , MRI no significant changes Code(s): G45.4 - TRANSIENT GLOBAL AMNESIA (2) Hx of CABG Assessment/Plan: H?O CAD s/p CABG at present CP free considering 2nd degree HB will admit on Tele, serial Ce cont ASa and Statin no B Blockers cardiology consult and ECHO Code(s): Z95.1 - PRESENCE OF AORTOCORONARY BYPASS GRAFT (3) Hypertension Assessment/Plan: Well controlled B Blockers resumed at 50 mg as patient was bradycardiac as per cardiology initial EKG shows APCs Code(s): I10 - ESSENTIAL (PRIMARY) HYPERTENSION (4) Uncontrolled type 2 diabetes mellitus Assessment/Plan: Optimize Glycemic control cont Po meds correction dose insulin HbA1C level.7.4 Code(s): E11.65 - TYPE 2 DIABETES MELLITUS WITH HYPERGLYCEMIA (5) Hyperlipidemia Assessment/Plan: Cont Statin Code(s): E78.5 - HYPERLIPIDEMIA, UNSPECIFIED (6) Anxiety Assessment/Plan: Cont home meds Code(s): F41.9 - ANXIETY DISORDER, UNSPECIFIED
[2018-03-17 08:49] LABS: ANION GAP 9 MMOL/L (8-16); BLOOD UREA NITROGEN 23 mg/dL (7-18); CALCIUM 9.2 mg/dL (8.5-10.1); CHLORIDE 99 mmol/L (98-107); CO2 28 mmol/L (21-32); CREATININE 0.9 mg/dL (0.55-1.3); GLUCOSE,RANDOM 137 mg/dL (74-106); POTASSIUM 4.3 mmol/L (3.5-5.1); SODIUM 136 mmol/L (136-145)
[2018-03-17] MEDS ORDERED: LORazepam 2 MG/ML SDV VIAL ONE (09:13)
[2018-03-17] MEDS ORDERED: LORazepam 2 MG/ML SDV VIAL IM ONE (09:15)
[2018-03-17] MEDS ORDERED: ASPIRIN 81 MG CHEWABLE TABLETS PO SCH (10:00)
[2018-03-17] MEDS ORDERED: METOPROLOL TARTRATE 50 MG TABLET (FP) PO SCH ×4 (10:00→12:15)
[2018-03-17] MEDS ORDERED: PT OWN MED DRAWER 7, Y5N ONE (10:33)
[2018-03-17] MEDS: ALPRAZolam 0.25 MG TABLET PO SCH (11:00)
[2018-03-17] MEDS: DONEPEZIL HCL 5 MG TABLET (FP) PO SCH (11:00)
[2018-03-17] MEDS: DIVALPROEX NA *ER* EXTEND REL 250 MG TABLET.SA PO SCH (11:00)
[2018-03-17] MEDS: LOSARTAN POTASSIUM 50 MG TABLET (FP) PO SCH (11:00)
[2018-03-17] MEDS: NIFEdipine E.R 60 MG TABLET (UD) PO SCH (11:00)
[2018-03-17] MEDS: CITALOPRAM HYDROBROMIDE 10 MG TABLET (FP) PO SCH (11:00)
--- NOTE | 2018-03-17 11:11 | CON.CARD ---
Consult Consult Specialty:: Cardiology Referred by:: Yuri Reason for Consultation:: alt ms, abnormal EKG - History of Present Illness Chief Complaint: alt ms History of Present Illness: 82F h/o HTN, dementia, anxiety, HLD p/w confusion, alt mental status, headache. Patient doesn't remember episode, was seen by daughter on video of patient's bedroom, had slurred speech and was confused. No chest pain, palps, dizzy, lightheadedness, dyspnea, edema. in ER BP 168/106. Recently was started on celexa and aricept, xanax being tapered. Feels better this morning. - Past Medical History Cardio/Vascular: Yes: CAD, HTN, Hyperlipdemia Gastrointestinal: Yes: Diverticulosis, GERD, GI Bleed Hepatobiliary: Yes: Other (fatty liver disease) Renal/: Yes: Hematuria (benign essential), Other (JACK) ...: No Psych: Yes: Anxiety Musculoskeletal: Yes: Chronic low back pain (/spinal stenosis), Osteoarthritis Endocrine: Yes: Diabetes Mellitus - Past Surgical History Past Surgical History: Yes: CABG, Cataract Removal (bilateral), Colectomy ( hemicolectomy for GI bleed) - Alcohol/Substance Use Hx Alcohol Use: No History of Substance Use: reports: None - Smoking History Smoking history: Unknown if ever smoked Have you smoked in the past 12 months: No - Social History Usual Living Arrangement: With Significant Other ADL: Independent Occupation: retired dressmaker History of Recent Travel: No Home Medications - Allergies Allergies/Adverse Reactions: Allergies Allergy/AdvReac Type Severity Reaction Status Date / Time daptomycin AdvReac Verified 03/16/18 05:49 piperacillin [From Zosyn] AdvReac Verified 03/16/18 05:49 rifampin AdvReac Verified 03/16/18 05:49 tazobactam [From Zosyn] AdvReac Verified 03/16/18 05:49 vancomycin AdvReac Verified 03/16/18 05:49 - Home Medications Home Medications: Ambulatory Orders Alprazolam [Xanax] 0.25 mg PO DAILY 03/16/18 Aspirin Coated [Ecotrin -] 81 mg PO DAILY 03/16/18 Atorvastatin Ca [Lipitor] 10 mg PO HS 03/16/18 Citalopram Hydrobromide [Celexa -] 10 mg PO DAILY 03/16/18 Divalproex *ER* [Depakote *ER* -] 250 mg PO BID 03/16/18 Donepezil HCl [Aricept] 5 mg PO DAILY 03/16/18 Glimepiride [Amaryl -] 2 mg PO AM 03/16/18 Losartan Potassium 100 mg PO DAILY 03/16/18 Metoprolol Succinate [Toprol Xl -] 100 mg PO DAILY 03/16/18 Nifedipine [Nifedipine ER] 60 mg PO DAILY 03/16/18 Sitagliptin Phosphate [Januvia] 100 mg PO DAILY 03/16/18 Family Disease History - Family Disease History Family Disease History: Other: Father (old age), Mother (cirrhosis), Brother ( gastric cancer) Review of Systems - Review of Systems Constitutional: reports: Weakness Eyes: reports: No Symptoms HENT: reports: No Symptoms Neck: reports: No Symptoms Cardiovascular: reports: No Symptoms Respiratory: reports: No Symptoms Gastrointestinal: reports: No Symptoms Genitourinary: reports: No Symptoms Musculoskeletal: reports: No Symptoms Integumentary: reports: No Symptoms Neurological: reports: No Symptoms Endocrine: reports: No Symptoms Hematology/Lymphatic: reports: No Symptoms Psychiatric: reports: No Symptoms Vital Signs: Vital Signs Temperature 98.1 F 03/17/18 06:00 Pulse Rate 70 03/17/18 06:00 Respiratory Rate 20 03/17/18 06:00 Blood Pressure 152/74 03/17/18 06:00 O2 Sat by Pulse Oximetry (%) 95 03/16/18 21:00 Constitutional: Yes: Well Nourished, No Distress, Calm Eyes: Yes: Conjunctiva Clear, EOM Intact HENT: Yes: Atraumatic, Normocephalic Neck: Yes: Supple, Trachea Midline Respiratory: Yes: Regular, CTA Bilaterally Gastrointestinal: Yes: Normal Bowel Sounds, Soft Renal/: Yes: WNL Cardiovascular: Yes: Regular Rate and Rhythm JVD: No Carotid Bruit: No Heart Sounds: Yes: S1, S2 Musculoskeletal: No: Back Pain Extremities: No: Cyanosis Edema: No Peripheral Pulses WNL: Yes Peripheral Pulses: 2+ Left Doralis Pedis, 2+ Right Dorsalis Pedis Integumentary: No: Jaundice Neurological: Yes: Alert, Oriented Psychiatric: Yes: Alert, Oriented - Other Data Labs, Other Data: CBC, BMP 03/17/18 06:30 03/17/18 06:30 Troponin, BNP 03/16/18 17:35 Troponin I < 0.02 Troponin, BNP 03/16/18 17:35 Troponin I < 0.02 Assessment/Plan Dobut Stress Echo 2014: 90% MPHR. no STs. no ischemia (normal augmentation all territories) MIBI 06/27: (betty); no ST; variable breast; small/hyper EF; no TID MIBI 12/23 (aleksandar): no STs, ? small apical isch--felt more likely variable breast ; small LV, hyper EF; no TID Echo 11/25: nl LV/EF; nl RV; valves WNL; RVSP 30-40 EKG: sinus with PACs tele: sinus, sinus bradycardia 82F h/o HTN, dementia, anxiety, HLD p/w confusion, alt mental status, headache Altered mental status, headache - may be 2/2 medication effect, HTN, dehydration - neuro following, brain MRI no acute process Abnormal EKG - sinus with PACs, sinus corona - no heart block noted on EKG or tele - metoprolol decreased to 50 mg daily for bradycardia, continue at lower dose - no ischemic changes, Trop neg x 1 CAD - s/p CABG 2006 - asymptomatic - trop neg x 1, atypical for ACS presentation - continue aspirin, statin, metoprolol HLD - continue statin HTN - improved on losartan, metoprolol, nifedipine continue - metoprolol decreased as above, stable BP
--- NOTE | 2018-03-17 13:52 | DS ---
Physical Examination Vital Signs: Vital Signs Temperature 98.1 F 03/17/18 06:00 Pulse Rate 70 03/17/18 06:00 Respiratory Rate 20 03/17/18 06:00 Blood Pressure 152/74 03/17/18 06:00 O2 Sat by Pulse Oximetry (%) 95 03/16/18 21:00 Constitutional: Yes: Well Nourished, No Distress, Calm HENT: Yes: Atraumatic, Other (Mm moist no anemia, PERRLA EOMI) Neck: Yes: Supple, Trachea Midline. No: Decreased ROM, Lymphadenopathy Cardiovascular: Yes: Regular Rate and Rhythm, Bradycardia, Tachycardia, S1, S2. No: JVD, Murmur Respiratory: Yes: Regular, CTA Bilaterally Gastrointestinal: Yes: Normal Bowel Sounds, Soft Extremities: No: Calf Tenderness, no edema feet Peripheral Pulses: Left Doralis Pedis: 1+, Right Dorsalis Pedis: 1+ Neurological: Yes: Alert, Oriented, Cran Nerves II-XII Intact. No: Aphasia, Asterixis, Ataxia, Dysarthria, Facial Droop, Numbness Motor Strength: WNL, LUE, LLE, RUE, RLE Labs: CBC, BMP 03/17/18 06:30 03/17/18 06:30 Discharge Summary Reason For Visit: ALTERED MENTAL STATUS Current Active Problems Altered mental status (Acute) TGA (transient global amnesia) (Acute) HTN T2DM Dyslipedemia Dementia Anxiety CAD s/p CABG Hospital Course: 82 yrs old F lives with daughter ambulates unsupported H/O Dementia anxiety, HTN , hypercholaterolemia, BIB family to evaluate an episode of confusion as per daughter she monitors patient bed room with a camera, as per daughter patient went to toilet after coming back she was sitting on a couch, confused , starring talking about peoples not oriented with some slurring of speech, 911 was called and patient was brought to Ed for evaluation, patient became normal at base line on arrival to ED no fever chills but patient c/o Rt sided head ache since morning, denies any nausea, vomiting, chest pain, SOB nasal congestion or sick contact, at the time of examination in Ed hypodermically stable and afebrile communicating normally unable to recall last night episode. Neurology consulted recommended MRI Brain that shows no acute changes patient remained stable, aleph evaluated by Cardiology consult all home medications resume, patient is being discharged home on her home med to F/U with PCP and Neurology clinic. Condition: Stable - Instructions Diet, Activity, Other Instructions: Low Salt Low Cholesterol Referrals: Jah Barrera MD [Staff Physician] - 2 Weeks Santos Haynes MD [Primary Care Provider] - 2 Weeks Disposition: HOME - Home Medications Comprehensive Discharge Medication List: Ambulatory Orders Alprazolam [Xanax] 0.25 mg PO DAILY 03/16/18 Aspirin Coated [Ecotrin -] 81 mg PO DAILY 03/16/18 Atorvastatin Ca [Lipitor] 10 mg PO HS 03/16/18 Citalopram Hydrobromide [Celexa -] 10 mg PO DAILY 03/16/18 Divalproex *ER* [Depakote *ER* -] 250 mg PO BID 03/16/18 Donepezil HCl [Aricept] 5 mg PO DAILY 03/16/18 Glimepiride [Amaryl -] 2 mg PO AM 03/16/18 Losartan Potassium 100 mg PO DAILY 03/16/18 Nifedipine [Nifedipine ER] 60 mg PO DAILY 03/16/18 Sitagliptin Phosphate [Januvia] 100 mg PO DAILY 03/16/18 Acetaminophen [Tylenol .Regular Strength -] 650 mg PO Q6H PRN tablet 03/17/18 Metoprolol Tartrate [Lopressor -] 100 mg PO DAILY
[2018-03-17 14:33] VITALS: BP 103/54; PULSE 67; TEMP 98
--- NOTE | 2018-03-17 16:37 | PN ---
Progress Note (short form) - Note Progress Note: 82 year old female history of DM, HTN, HLD, CAD S/P CABG, Recently daignosed with Alzheimer disease and have history of mood disorder and anxiety. She was feeling dizzy yeserday and after that she started talking to her father an dmother. She remains confused, and at hospital her bp was high and bun was slightly raised. At Admission,She was afebrile, no focal weakness, seizure or high grade fever. SHe is feeling better and ready to go home, advice to hold celexa and and also slowly taper off xanax. mri of brain was unremarkable. Neurological Examination bp at admission 168/106 Alert oriented x 2, EOMI, PUPILS REACTIVE, no face asymmetry cn all intact Motor 5/5 all ext sensation is normal reflex are generalized diminished CT head : no acute findings mri ofbrain is unremarkable, except white matter disease. 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 She can follow up outpatient with Dr Turner 3. Advice to hold celexa, and slowly taper off xanax and follow up with psychiatrist as outpatient Thanking you so much Jacki Lanier MD
--- NOTE | 2018-03-18 10:35 | EKG ---
Test Reason : Blood Pressure : / mmHG Vent. Rate : 058 BPM Atrial Rate : 058 BPM P-R Int : 182 ms QRS Dur : 086 ms QT Int : 408 ms P-R-T Axes : 046 -13 020 degrees QTc Int : 400 ms SINUS BRADYCARDIA OTHERWISE NORMAL ECG WHEN COMPARED WITH ECG OF 16-MAR-2018 05:56, PREVIOUS ECG HAS UNDETERMINED RHYTHM, NEEDS REVIEW Confirmed by FINOA JOLLEY MD ([id number]) on 03/18/2018 10:35:23 AM Referred By: Confirmed By:FIONA JOLLEY MD
== END 2018-03-17 17:05 | disposition home or self-care (01) ==
LOC: JER 05:03 → JERBED 09:38 → J4S 16:27
PROVIDERS: ADMIT Internal Medicine; ATTEND Internal Medicine
PROC: 3E013VG Introduction of Insulin into Subcutaneous Tissue, Percutaneous Approach (ICD-10-PCS; principal; 2018-03-16)
DX: R40.4 Transient alteration of awareness (principal); G45.4 Transient global amnesia; I10 Essential (primary) hypertension; E78.5 Hyperlipidemia, unspecified; E11.9 Type 2 diabetes mellitus without complications; I25.10 Atherosclerotic heart disease of native coronary artery without angina pectoris; K21.9 Gastro-esophageal reflux disease without esophagitis; F41.9 Anxiety disorder, unspecified; K76.0 Fatty (change of) liver, not elsewhere classified; R94.31 Abnormal electrocardiogram [ECG] [EKG]; Z95.1 Presence of aortocoronary bypass graft; Z88.1 Allergy status to other antibiotic agents; Z79.82 Long term (current) use of aspirin
CPT/HCPCS: 36415; 70450-TC; 70551-TC; 71045-TC-FY; 80048; 80053; 80164; 81003; 82550; 82962; 83036; 84443; 84484; 85025; 85651; 86140; 87086; 87186; 93005; 93010; 96372; 99285-25; G0378